=== PATIENT | female | born 1940 | race Caucasian/White ===

== ENCOUNTER 2024-04-20 15:02 | Emergency (ER) | payer MEDICARE ==
--- NOTE | 2024-04-20 15:35 | ED ---
Fall HPI - General Chief Complaint: Fall Stated Complaint: fall-hit head Time Seen by Provider: 04/20/24 15:26 Source: patient, family, RN notes reviewed Mode of arrival: ambulatory Limitations: no limitations - History of Present Illness Initial Comments: 83-year-old female presents emergency department chief complaint of a fall. She states she was going up her steps into the house from the garage when she missed the handle falling backwards striking her head. She did strike her head on a cooler she is on Eliquis patient placed in a c-collar. She complains of minimal buttocks pain states pain does travel up and down her back but has no exact neck pain. Patient denies any difficulty ambulating or loss conscious. No chest pain no shortness of breath - Related Data Allergies Allergy/AdvReac Type Severity Reaction Status Date / Time Penicillins Allergy Anaphylaxis Verified 04/20/24 15:12 adhesive tape AdvReac Rash/Hives Verified 04/20/24 15:12 Review of Systems ROS Statement: Those systems with pertinent positive or pertinent negative responses have been documented in the HPI. ROS Other: All systems not noted in ROS Statement are negative. Past Medical History Past Medical History: Atrial Fibrillation History of Any Multi-Drug Resistant Organisms: None Reported Past Surgical History: Adenoidectomy, Appendectomy, Ear Surgery, Hysterectomy Past Psychological History: No Psychological Hx Reported Smoking Status: Never smoker Past Alcohol Use History: Occasional Past Drug Use History: None Reported General Exam Limitations: no limitations General appearance: alert, in no apparent distress Head exam: Present: atraumatic, normocephalic. Absent: normal inspection (Scalp hematoma right parietal /occipital) Eye exam: Present: normal appearance, PERRL, EOMI. Absent: scleral icterus, conjunctival injection, periorbital swelling ENT exam: Present: normal exam, normal oropharynx, mucous membranes moist Neck exam: Present: normal inspection. Absent: tenderness, meningismus, full ROM (Patient in c-collar), lymphadenopathy Respiratory exam: Present: normal lung sounds bilaterally. Absent: respiratory distress, wheezes, rales, rhonchi, stridor Cardiovascular Exam: Present: regular rate, normal rhythm, normal heart sounds. Absent: systolic murmur, diastolic murmur, rubs, gallop, clicks GI/Abdominal exam: Present: soft, normal bowel sounds. Absent: distended, tenderness, guarding, rebound, rigid Back exam: Present: normal inspection, full ROM. Absent: tenderness, paraspinal tenderness, vertebral tenderness Neurological exam: Present: alert, oriented X3, CN II-XII intact, reflexes normal, other (GCS 15). Absent: motor sensory deficit Skin exam: Present: warm, dry, intact, normal color. Absent: rash Course Vital Signs 04/20/24 04/20/24 15:03 16:28 Temperature 97.7 F Pulse Rate 50 L 52 L Respiratory 16 Rate Blood Pressure 148/54 187/67 O2 Sat by Pulse 97 Oximetry Medical Decision Making - Medical Decision Making Was pt. sent in by a medical professional or institution (, [facility], [employer], urgent care, hospital, or skilled nursing...) When possible be specific @ -No Did you speak to anyone other than the patient for history (EMS, parent, family, police, friend...)? What history was obtained from this source @ -No Did you review nursing and triage notes (agree or disagree)? Why? @ -I reviewed and agree with nursing and triage notes Were old charts reviewed (outside hosp., previous admission, EMS record, old EKG, old radiological studies, urgent care reports/EKG's, skilled nursing records)? Report findings @ -No old charts were reviewed Differential Diagnosis (chest pain, altered mental status, abdominal pain women, abdominal pain men, vaginal bleeding, weakness, fever, dyspnea, syncope, headache, dizziness, GI bleed, back pain, seizure, CVA, palpatations, mental health, musculoskeletal)? @ -Fall, scalp contusion, intracranial hemorrhage, cervical fracture, pelvic fracture EKG interpreted by me (3pts min.). @ -None none X-rays interpreted by me (1pt min.). @ -Pelvis no acute fracture CT interpreted by me (1pt min.). @ -CT brain showing small right parietal subdural hematoma, cervical spine CT unremarkable U/S interpreted by me (1pt. min.). @ -None done What testing was considered but not performed or refused? (CT, X-rays, U/S, labs)? Why? @ -None What meds were considered but not given or refused? Why? @ -None Did you discuss the management of the patient with other professionals (professionals i.e. , [facility], [employer] REPAIRER, lab, RT, psych nurse, social work assistant, emergency room orderly, teacher, strike warfare/missile systems officer, bilingual patient support caseworker)? Give summary @ -Discussed case with Dr. Queen at [facility] for transferred for neurosurgery evaluation Was smoking cessation discussed for >3mins.? @ -No Was critical care preformed (if so, how long)? @ -No Were there social determinants of health that impacted care today? How? (Homelessness, low income, unemployed, alcoholism, drug addiction, transportation, low edu. Level, literacy, decrease access to med. care, senior living, rehab)? @ -No Was there de-escalation of care discussed even if they declined (Discuss DNR or withdrawal of care, Hospice)? DNR status @ -No What co-morbidities impacted this encounter? (DM, HTN, Smoking, COPD, CAD, Canc er, CVA, ARF, Chemo, Hep., AIDS, mental health diagnosis, sleep apnea, morbid obesity)? @ -None Was patient admitted / discharged? Hospital course, mention meds given and route, prescriptions, significant lab abnormalities, going to OR and other pertinent info. @ -[facility]terior [facility]. Patient presented after a fall mechanical fall CT showing small subdural hematoma. Patient is on Eliquis for atrial fibrillation. Patient was given Kcentra and TXA. Patient is logically intact she has no ot her obvious injuries at this time. Patient's blood pressure is elevated at this time. Patient will be placed on Cardene and will be closely monitored. Undiagnosed new problem with uncertain prognosis? @ -Yes Drug Therapy requiring intensive monitoring for toxicity (Heparin, Nitro, Insulin, Cardizem)? @ -No Were any procedures done? @ -No Diagnosis/symptom? @ -Subdermal hematoma, fall Acute, or Chronic, or Acute on Chronic? @ -Acute Uncomplicated (without systemic symptoms) or Complicated (systemic symptoms)? @ -Complicated Side effects of treatment? @ -No Exacerbation, Progression, or Severe Exacerbation? @ -No Poses a threat to life or bodily function? How? (Chest pain, USA, SC, pneumonia, PE, COPD, DKA, ARF, appy, cholecystitis, CVA, Diverticulitis, Homicidal, Suicidal, threat to staff... and all critical care pts) @ -Yes - Lab Data Result diagrams: 04/20/24 16:28 Lab Results 06/23/24 Range/Units 16:28 WBC 3.7 L (3.8-10.6) k/uL RBC 3.61 L (3.80-5.40) m/uL Hgb 11.9 (11.4-16.0) gm/dL Hct 37.3 (34.0-46.0) % MCV 103.2 H (80.0-100.0) fL MCH 33.0 (25.0-35.0) pg MCHC 31.9 (31.0-37.0) g/dL RDW 12.3 (11.5-15.5) % Plt Count 156 (150-450) k/uL MPV 7.8 Neutrophils % 52 % Lymphocytes % 37 % Monocytes % 5 % Eosinophils % 3 % Basophils % 1 % Neutrophils # 1.9 (1.3-7.7) k/uL Lymphocytes # 1.3 (1.0-4.8) k/uL Monocytes # 0.2 (0-1.0) k/uL Eosinophils # 0.1 (0-0.7) k/uL Basophils # 0.0 (0-0.2) k/uL Macrocytosis Slight Critical Care Time Critical Care Time: Yes Total Critical Care Time: 35 Disposition Clinical Impression: Fall, Subdural hematoma Disposition: OTHER INSTITUTION NOT DEFINED Condition: Critical Referrals: Lonny Aden DO [Primary Care Provider] - 1-2 days Time of Disposition: 16:15 - Out of Hospital Transfer - Req. Specs Out of Hospital Transfer - Requested Specifics: Other Emergency Center ([facility])
[2024-04-20] MEDS ORDERED: Kcentra PER PHARMACY 1 EACH MISC MISCELLANE PRN (16:09)
[2024-04-20] MEDS ORDERED: HUMAN PROTHROMBIN COMPLX 500 UNIT/16 ML VIAL IV ONE (16:09)
--- NOTE | 2024-04-20 16:09 | CT ---
EXAMINATION TYPE: CT brain yee vargas DATE OF EXAM: 04/20/2024 COMPARISON: None HISTORY: pt fell, hit head. neck pain. unable to remove pt's necklace through c collar. CT DLP: 1411.[address] of the brain was performed. The ventricles, basal cisterns and sulci overlying the cerebral convexities demonstrate enlargement. Bifrontal atrophy. Remote insult left basal ganglia. I cannot exclude a small right parietal subdural hematoma measuring 1 cm in AP dimension and 2.4 mm i n thickness axial image 38 of 73 and coronal image 36 of 73. No additional hemorrhage seen at this ti me. There is decreased attenuation about the periventricular white matter and deep white matter of both c erebral hemispheres, compatible with chronic small vessel ischemia. No mass effects are seen. If symptoms persist consider MRI. Osseous calvarium is intact. IMPRESSION: 1. Small right parietal subdural hematoma is difficult to exclude. CT Cervical Spine: Unenhanced CT of the cervical spine was performed with bone and soft tissue window settings submitted . Coronal and sagittal reconstruction is obtained. There is normal alignment and prevertebral soft tissues. No evidence for acute cervical fracture . Scattered degenerative disc disease and spondylosis. Biapical scarring. Evidence of remote granulomat ous disease and biapical scarring. Intracranially, spectroscopic data place a graduate nurse view from teleradiology has gone Michael Thapa she might have a small subdural on the right leg 1 cm in length 2.4 mm in thickness otherwise sagittal C much. Thanks. IMPRESSION: 1. No evidence for acute fracture or subluxation of the cervical spine.
--- NOTE | 2024-04-20 16:11 | XR ---
EXAMINATION TYPE: XR pelvis AP view DATE OF EXAM: 04/20/2024 CLINICAL HISTORY: pain TECHNIQUE: Single view the pelvis is submitted. FINDINGS: No evidence for fracture, dislocation or bony lesion. Joint spaces are well-preserved. S I joints appear symmetric. IMPRESSION: 1. No acute fracture or dislocation seen. ICD 10 NO FRACTURE, INITIAL EVALUATION
[2024-04-20 16:34] LABS: Basophils % (A) 1 %; Eosinophils # (A) 0.1 k/uL (0-0.7); Eosinophils % (A) 3 %; HCT 37.3 % (34.0-46.0); HGB 11.9 gm/dL (11.4-16.0); Lymphocytes # (A) 1.3 k/uL (1.0-4.8); Lymphocytes % (A) 37 %; MCHC 31.9 g/dL (31.0-37.0); MCV 103.2 fL (80.0-100.0); Macrocytosis Slight; Mean Platelet Volume 7.8; Monocytes # (A) 0.2 k/uL (0-1.0); Monocytes % (A) 5 %; Neutrophils # (A) 1.9 k/uL (1.3-7.7); Neutrophils % (A) 52 %; Platelet Count 156 k/uL (150-450); RBC 3.61 m/uL (3.80-5.40); RDW 12.3 % (11.5-15.5); WBC 3.7 k/uL (3.8-10.6)
[2024-04-20] MEDS: HUMAN PROTHROMBIN COMPLX IV STA (16:41)
[2024-04-20 16:42] LABS: Partial Thromboplastin Time 26.4 sec (22.0-30.0)
[2024-04-20 16:44] LABS: ALT 9 U/L (4-34); African American GFR (CKD) >90 (>60 ml/min/1.73 sqM); Anion Gap 7 mmol/L; Blood Urea Nitrogen 22 mg/dL (7-17); Calcium 7.2 mg/dL (8.4-10.2); Carbon Dioxide 17 mmol/L (22-30); Chloride 116 mmol/L (98-107); Glucose 79 mg/dL (74-99); Non-African American GFR(CKD) 85 (>60 ml/min/1.73 sqM); Sodium 140 mmol/L (137-145); Total Bilirubin 0.5 mg/dL (0.2-1.3)
[2024-04-20] MEDS: TRANEXAMIC 1,000 MG/100ML-NACL 1,000 MG in SALINE 1 100ML.BAG IV STA (16:49)
[2024-04-20] MEDS: niCARdipine 20 MG in SODIUM CHLORIDE 0.9% 192 ML IV SCH (16:54)
[2024-04-20 17:19] VITALS: BP 166/67; PULSE 51; RESP 21; TEMP 97.8
[2024-04-20 17:25] LABS: AST 29 U/L (14-36); Albumin 3.1 g/dL (3.5-5.0); Alkaline Phosphatase 52 U/L (38-126); Total Protein 5.1 g/dL (6.3-8.2)
== END 2024-04-20 17:15 | disposition other institution (70) ==
LOC: EC 15:02
DX: S06.5XAA Traumatic subdural hemorrhage with loss of consciousness status unknown, initial encounter (principal); Z88.0 Allergy status to penicillin; Z91.048 Other nonmedicinal substance allergy status; W10.9XXA Fall (on) (from) unspecified stairs and steps, initial encounter
CPT/HCPCS: 36415; 80053; 85025; 85610; 85730; 72170; 72125; 70450; 99291; 96365; 96368; J7168

== ENCOUNTER 2024-05-22 21:29 | Emergency (ER) | payer MEDICARE ==
[2024-05-22 21:57] VITALS: RESP 20
--- NOTE | 2024-05-22 22:09 | ED ---
URI HPI - General Chief Complaint: Upper Respiratory Infection Stated Complaint: + covid, fever Time Seen by Provider: 05/22/24 22:07 Source: patient, family, RN notes reviewed Mode of arrival: wheelchair Limitations: no limitations - History of Present Illness Initial Comments: 83-year-old female with history of atrial fibrillation presenting with cough x 1 day. States she tested positive for COVID at home tonight. She has been experiencing fever and feeling "winded" at home. States symptoms came on suddenly today. Denies history of COVID. Denies any other medical history besides atrial fibrillation. Denies difficulty breathing or difficulty tolerating orals. - Related Data Allergies Allergy/AdvReac Type Severity Reaction Status Date / Time Penicillins Allergy Anaphylaxis Verified 05/22/24 21:39 adhesive tape AdvReac Rash/Hives Verified 05/22/24 21:39 Review of Systems ROS Statement: Those systems with pertinent positive or pertinent negative responses have been documented in the HPI. ROS Other: All systems not noted in ROS Statement are negative. Past Medical History Past Medical History: Atrial Fibrillation History of Any Multi-Drug Resistant Organisms: None Reported Past Surgical History: Adenoidectomy, Appendectomy, Ear Surgery, Hysterectomy, Tonsillectomy Past Psychological History: No Psychological Hx Reported Smoking Status: Never smoker Past Alcohol Use History: Occasional Past Drug Use History: None Reported General Exam Limitations: no limitations General appearance: alert, in no apparent distress Eye exam: Present: normal appearance, PERRL, EOMI. Absent: scleral icterus, conjunctival injection, periorbital swelling ENT exam: Present: normal exam, normal oropharynx, mucous membranes moist Respiratory exam: Present: normal lung sounds bilaterally. Absent: respiratory distress, wheezes, rales, rhonchi, stridor Cardiovascular Exam: Present: regular rate, normal rhythm, normal heart sounds. Absent: systolic murmur, diastolic murmur, rubs, gallop, clicks Neurological exam: Present: alert, oriented X3 Psychiatric exam: Present: normal affect, normal mood Skin exam: Present: warm, dry, intact, normal color. Absent: rash Course Vital Signs 05/22/24 05/22/24 05/22/24 21:30 21:41 21:50 Temperature 98.7 F 102.9 F H Pulse Rate 90 Respiratory 18 20 Rate Blood Pressure 111/52 O2 Sat by Pulse 96 Oximetry Disposition Referrals: Lonny Aden DO [Primary Care Provider] - 1-2 days
[2024-05-22] MEDS: IBUPROFEN 600 MG TAB PO STA (22:11)
[2024-05-22 23:38] VITALS: TEMP 99.9
--- NOTE | 2024-05-23 01:32 | XR ---
EXAM: XR Chest, 2 Views CLINICAL HISTORY: ITS.REASON XR Reason: cough TECHNIQUE: Frontal and lateral views of the chest. COMPARISON: No relevant prior studies available. FINDINGS: Lungs: Unremarkable. No consolidation. Pleural space: Unremarkable. No pneumothorax. Heart: Unremarkable. No cardiomegaly. Mediastinum: Unremarkable. Normal mediastinal contour. Bones/joints: Unremarkable. No acute fracture. IMPRESSION: No consolidation.
[2024-05-23 01:52] VITALS: BP 132/74; PULSE 64
== END 2024-05-23 00:45 | disposition home or self-care (01) ==
LOC: EC 21:29
DX: U07.1 COVID-19 (principal)
CPT/HCPCS: 71046; 99283

== ENCOUNTER 2024-05-26 12:04 | Inpatient (IN) | payer MEDICARE ==
[2024-05-26 13:08] LABS: HCT 35.8 % (34.0-46.0); HGB 12.1 gm/dL (11.4-16.0); MCH 33.1 pg (25.0-35.0); MCHC 33.9 g/dL (31.0-37.0); Mean Platelet Volume 7.7; Platelet Count 202 k/uL (150-450); RBC 3.67 m/uL (3.80-5.40); RDW 12.3 % (11.5-15.5); WBC 6.7 k/uL (3.8-10.6)
[2024-05-26 13:14] LABS: INR 0.9 (<1.2); Partial Thromboplastin Time 27.8 sec (22.0-30.0); Prothrombin Time 10.3 sec (10.0-12.5)
[2024-05-26] MEDS: SODIUM CHLORIDE 0.9% 1,000 ML IV STA (13:14)
[2024-05-26] MEDS: PANTOPRAZOLE 40 MG/10 ML VIAL IVP STA (13:18)
[2024-05-26] MEDS: ONDANSETRON 4 MG/2 ML VIAL IVP STA (13:18)
[2024-05-26 13:25] LABS: ALT 10 U/L (4-34); AST 26 U/L (14-36); African American GFR (CKD) 56 (>60 ml/min/1.73 sqM); Albumin 4.1 g/dL (3.5-5.0); Alkaline Phosphatase 66 U/L (38-126); Anion Gap 12 mmol/L; Blood Urea Nitrogen 34 mg/dL (7-17); Calcium 9.2 mg/dL (8.4-10.2); Carbon Dioxide 17 mmol/L (22-30); Chloride 104 mmol/L (98-107); Glucose 118 mg/dL (74-99); Lipase 144 U/L (23-300); Non-African American GFR(CKD) 49 (>60 ml/min/1.73 sqM); Potassium 4.3 mmol/L (3.5-5.1); Sodium 133 mmol/L (137-145); Total Bilirubin 0.6 mg/dL (0.2-1.3); Total Protein 6.5 g/dL (6.3-8.2)
--- NOTE | 2024-05-26 13:29 | XR ---
EXAMINATION TYPE: XR chest 2V DATE OF EXAM: 05/26/2024 COMPARISON: 05/22/2024 HISTORY: Shortness of breath TECHNIQUE: Frontal and lateral views of the chest are obtained. FINDINGS: Scattered senescent parenchymal changes noted. Hyperinflation compatible with COPD. No evidence for infiltrate. No evidence for atelectasis. Heart size is stable. Mediastinal structures are stable and grossly unremarkable. No evidence for hilar prominence. Degenerative changes dorsal spine. IMPRESSION: 1. No evidence for acute pulmonary disease.
[2024-05-26 13:33] LABS: MCV 97.7 fL (80.0-100.0)
[2024-05-26 14:11] LABS: Band Neutrophils % 1 %; Nucleated Red Blood Cells 0 /100 WBC (0-0); RBC Morphology Normal
[2024-05-26 14:15] LABS: Lymphocytes # (M) 2.35 k/uL (1.0-4.8); Neutrophils % (M) 52 %; Total Cells Counted 102
[2024-05-26] MEDS ORDERED: NALOXONE 0.4 MG/ML 1 ML VIAL IV PRN (14:56)
[2024-05-26] MEDS ORDERED: ONDANSETRON 4 MG/2 ML VIAL IVP PRN (14:56)
--- NOTE | 2024-05-26 14:56 | ED ---
General Adult HPI - General Chief complaint: Weakness Stated complaint: Covid + Time Seen by Provider: 05/26/24 12:30 Source: patient, EMS, RN notes reviewed, old records reviewed Mode of arrival: EMS - History of Present Illness Initial comments: Patient is an 83-year-old female presents emergency department complaining of weakness. Patient was found to be COVID-19 positive a few days ago and was initiated on Paxlovid. Has had weakness, issues with moving around home which is abnormal for her, as well as decreased appetite and dehydration. Presents for further evaluation. She denies any abdominal pain, nausea, vomiting. States she has had some diarrhea. Denies any chest pain or shortness of breath. Presents for further evaluation. Past medical history includes atrial fibrillation. - Related Data Home Medications Medication Instructions Recorded Confirmed Acetaminophen Tab [Tylenol] 650 mg PO Q6H PRN 05/26/24 05/26/24 Apixaban [Eliquis] 2.5 mg PO BID 05/26/24 05/26/24 Diphenoxylate HCl/Atropine 1 tab PO TID PRN 05/26/24 05/26/24 [Lomotil 2.5-0.025 mg Tablet] Donepezil HCl [Aricept] 10 mg PO HS 05/26/24 05/26/24 Escitalopram Oxalate [Lexapro] 10 mg PO DAILY 05/26/24 05/26/24 Famotidine [Pepcid] 40 mg PO BID 05/26/24 05/26/24 Gabapentin 600 mg PO BID 05/26/24 05/26/24 Methenamine Hippurate [Hiprex] 1 gm PO BID 05/26/24 05/26/24 Metoprolol Tartrate [Lopressor] 25 mg PO BID 05/26/24 05/26/24 NIFEdipine XL [Procardia Xl] 30 mg PO BID 05/26/24 05/26/24 Nirmatrelvir/Ritonavir [Paxlovid 1 dose PO BID 05/26/24 05/26/24 150-100 mg Dose Pack] OLANZapine [ZyPREXA] 2.5 mg PO DAILY@1200 05/26/24 05/26/24 gemfibroziL [Lopid] 600 mg PO BID 05/26/24 05/26/24 lisinopriL [Zestril] 10 mg PO DAILY 05/26/24 05/26/24 Allergies Allergy/AdvReac Type Severity Reaction Status Date / Time adhesive tape Allergy Rash/Hives Verified 05/26/24 14:43 codeine Allergy Unknown Verified 05/26/24 14:43 Penicillins Allergy Anaphylaxis Verified 05/26/24 14:43 Review of Systems ROS Statement: Those systems with pertinent positive or pertinent negative responses have been documented in the HPI. Review of Systems: CONST: Denies fever EYES: Denies blurry vision ENT: Denies nasal congestion C/V: Denies Chest pain RESP: Denies shortness of breath GI: Denies abdominal pain : Denies dysuria SKIN: Denies rash. MSK: Denies joint pain. NEURO: Denies headache ROS Other: All systems not noted in ROS Statement are negative. Past Medical History Past Medical History: Atrial Fibrillation History of Any Multi-Drug Resistant Organisms: None Reported Past Surgical History: Adenoidectomy, Appendectomy, Ear Surgery, Hysterectomy, Tonsillectomy Past Psychological History: No Psychological Hx Reported Smoking Status: Never smoker Past Alcohol Use History: Occasional Past Drug Use History: None Reported General Exam - General Exam Comments Initial Comments: General: Appears in no acute distress. HEAD: Normal with no signs of head trauma. EYES: PERRLA, EOMI, conjunctiva normal, no discharge. ENT: Hearing grossly intact, normal oropharynx. Dry mucous membranes. RESPIRATORY: Clear breath sounds bilaterally. No wheezes, rales, or rhonchi. No significant hypoxia. C/V: Regular rate and rhythm. S1 and S2 auscultated, no edema, peripheral pulses 2+ and intact throughout ABD: Abd is soft, nontender, nondistended EXT: Normal range of motion, no obvious deformity SKIN: No rashes or lesions observed on exposed skin. NEURO: Alert and oriented x 4. No focal deficits. Course Vital Signs 05/26/24 12:06 Temperature 98.0 F Pulse Rate 60 Respiratory 16 Rate Blood Pressure 116/60 O2 Sat by Pulse 94 L Oximetry Medical Decision Making - Medical Decision Making Was pt. sent in by a medical professional or institution (, PA, TOBACCO SIEVE OPERATOR, urgent care, hospital, or detention...) When possible be specific @ -No Did you speak to anyone other than the patient for history (EMS, parent, family, police, friend...)? What history was obtained from this source @ -No Did you review nursing and triage notes (agree or disagree)? Why? @ -I reviewed and agree with nursing and triage notes Were old charts reviewed (outside hosp., previous admission, EMS record, old EKG, old radiological studies, urgent care reports/EKG's, detention records)? Report findings @ -Old charts reviewed including the recent COVID-19 positive test from 4 days ago on May 22. Differential Diagnosis (chest pain, altered mental status, abdominal pain women, abdominal pain men, vaginal bleeding, weakness, fever, dyspnea, syncope, headache, dizziness, GI bleed, back pain, seizure, CVA, palpatations, mental health, musculoskeletal)? @ -Differential Weakness: Hypoglycemia, shock, sepsis, hyponatremia, anemia, infection, SC, ETOH, adverse medicine reaction, overdose, stroke, this is not meant to be an all-inclusive list. EKG interpreted by me (3pts min.). @ -As above X-rays interpreted by me (1pt min.). @ -Chest x-ray reveals no obvious acute cardiopulmonary process. CT interpreted by me (1pt min.). @ -None done U/S interpreted by me (1pt. min.). @ -None done What testing was considered but not performed or refused? (CT, X-rays, U/S, labs)? Why? @ -None What meds were considered but not given or refused? Why? @ -None Did you discuss the management of the patient with other professionals (professionals i.e. , PA, TOBACCO SIEVE OPERATOR, lab, RT, psych nurse, social human services assistants, superintendent local, teacher, humane officer, housing case manager)? Give summary @ -I discussed with Dr. Leone of [facility] who accepted the admission. Was smoking cessation discussed for >3mins.? @ -No Was critical care preformed (if so, how long)? @ -No Were there social determinants of health that impacted care today? How? (Homelessness, low income, unemployed, alcoholism, drug addiction, transportation, low edu. Level, literacy, decrease access to med. care, senior care, rehab)? @ -No Was there de-escalation of care discussed even if they declined (Discuss DNR or withdrawal of care, Hospice)? DNR status @ -No What co-morbidities impacted this encounter? (DM, HTN, Smoking, COPD, CAD, Cancer, CVA, ARF, Chemo, Hep., AIDS, mental health diagnosis, sleep apnea, morbid obesity)? @ -COVID-19 infection Was patient admitted / discharged? Hospital course, mention meds given and route, prescriptions, significant lab abnormalities, going to OR and other pertinent info. @ -Based on patient's presentation and physical exam, presents emergency department complaining of weakness, debility in the setting of recently diagnosed COVID-19. Decreased oral intake. Concern for dehydration. We will obtain basic labs. Patient was in agreement this plan. Vital signs within acceptable limits. EKG shows no signs of acute ischemia. Patient's laboratory studies are within acceptable limits. Chest x-ray reveals no obvious acute cardiopulmonary process. I discussed results with patient as well as daughter. Patient will be admitted for weakness, dehydration. They were in agreement this plan. I spoke with the admitting provider, Dr. Leone of [facility] who accepted the admission. Undiagnosed new problem with uncertain prognosis? @ -No Drug Therapy requiring intensive monitoring for toxicity (Heparin, Nitro, Insulin, Cardizem)? @ -No Were any procedures done? @ -No Diagnosis/symptom? @ -Weakness, dehydration, COVID-19 infection Acute, or Chronic, or Acute on Chronic? @ -Acute Uncomplicated (without systemic symptoms) or Complicated (systemic symptoms)? @ -Complicated Side effects of treatment? @ -No Exacerbation, Progression, or Severe Exacerbation? @ -No Poses a threat to life or bodily function? How? (Chest pain, USA, SC, pneumonia, PE, COPD, DKA, ARF, appy, cholecystitis, CVA, Diverticulitis, Homicidal, Suicidal, threat to staff... and all critical care pts) @ -Yes - Lab Data Result diagrams: 05/26/24 12:55 05/26/24 12:55 Lab Results 05/26/24 05/26/24 05/26/24 Range/Units 12:55 12:55 12:55 WBC 6.7 (3.8-10.6) k/uL RBC 3.67 L (3.80-5.40) m/uL Hgb 12.1 (11.4-16.0) gm/dL Hct 35.8 (34.0-46.0) % MCV 97.7 D (80.0-100.0) fL MCH 33.1 (25.0-35.0) pg MCHC 33.9 (31.0-37.0) g/dL RDW 12.3 (11.5-15.5) % Plt Count 202 (150-450) k/uL MPV 7.7 Neutrophils % (Manual) 52 % Band Neuts % (Manual) 1 % Lymphocytes % (Manual) 35 % Monocytes % (Manual) 9 % Eosinophils % (Manual) 3 % Neutrophils # (Manual) 3.50 (1.3-7.7) k/uL Lymphocytes # (Manual) 2.35 (1.0-4.8) k/uL Monocytes # (Manual) 0.60 (0-1.0) k/uL Eosinophils # (Manual) 0.20 (0-0.7) k/uL Nucleated RBCs 0 (0-0) /100 WBC Manual Slide Review Performed RBC Morphology Normal PT 10.3 (10.0-12.5) sec INR 0.9 (<1.2) APTT 27.8 (22.0-30.0) sec Sodium 133 L (137-145) mmol/L Potassium 4.3 (3.5-5.1) mmol/L Chloride 104 (98-107) mmol/L Carbon Dioxide 17 L (22-30) mmol/L Anion Gap 12 mmol/L BUN 34 H (7-17) mg/dL Creatinine 1.05 H (0.52-1.04) mg/dL Est GFR (CKD-EPI)AfAm 56 (>60 ml/min/1.73 sqM) Est GFR (CKD-EPI)NonAf 49 (>60 ml/min/1.73 sqM) Glucose 118 H (74-99) mg/dL Plasma Lactic Acid Jack (0.7-2.0) mmol/L Calcium 9.2 (8.4-10.2) mg/dL Total Bilirubin 0.6 (0.2-1.3) mg/dL AST 26 (14-36) U/L ALT 10 (4-34) U/L Alkaline Phosphatase 66 (38-126) U/L Total Protein 6.5 (6.3-8.2) g/dL Albumin 4.1 (3.5-5.0) g/dL Lipase 144 (23-300) U/L 05/26/24 Range/Units 12:55 WBC (3.8-10.6) k/uL RBC (3.80-5.40) m/uL Hgb (11.4-16.0) gm/dL Hct (34.0-46.0) % MCV (80.0-100.0) fL MCH (25.0-35.0) pg MCHC (31.0-37.0) g/dL RDW (11.5-15.5) % Plt Count (150-450) k/uL MPV Neutrophils % (Manual) % Band Neuts % (Manual) % Lymphocytes % (Manual) % Monocytes % (Manual) % Eosinophils % (Manual) % Neutrophils # (Manual) (1.3-7.7) k/uL Lymphocytes # (Manual) (1.0-4.8) k/uL Monocytes # (Manual) (0-1.0) k/uL Eosinophils # (Manual) (0-0.7) k/uL Nucleated RBCs (0-0) /100 WBC Manual Slide Review RBC Morphology PT (10.0-12.5) sec INR (<1.2) APTT (22.0-30.0) sec Sodium (137-145) mmol/L Potassium (3.5-5.1) mmol/L Chloride (98-107) mmol/L Carbon Dioxide (22-30) mmol/L Anion Gap mmol/L BUN (7-17) mg/dL Creatinine (0.52-1.04) mg/dL Est GFR (CKD-EPI)AfAm (>60 ml/min/1.73 sqM) Est GFR (CKD-EPI)NonAf (>60 ml/min/1.73 sqM) Glucose (74-99) mg/dL Plasma Lactic Acid Jack 0.8 (0.7-2.0) mmol/L Calcium (8.4-10.2) mg/dL Total Bilirubin (0.2-1.3) mg/dL AST (14-36) U/L ALT (4-34) U/L Alkaline Phosphatase (38-126) U/L Total Protein (6.3-8.2) g/dL Albumin (3.5-5.0) g/dL Lipase (23-300) U/L - EKG Data -: EKG Interpreted by Me EKG Comments: 12-lead Electrocardiogram Interpretation Note EKG was reviewed and interpreted by myself. 12-lead ECG performed at 1249 is interpreted by me as revealing sinus bradycardia at a rate of 58 beats per minute. Lisman is normal. IN interval is 186 ms, QRS duration is 105 ms, QTc is 433 ms. There were no ST or T wave abnormalities to suggest myocardial ischemia or injury. R wave progression across the precordium was satisfactory. By my i nterpretation this EKG is non-diagnostic for acute ischemia. Disposition Clinical Impression: COVID-19, Weakness, Dehydration Disposition: ADMITTED IP TO THIS HOSP Condition: Stable Time of Disposition: 14:55
[2024-05-26] MEDS: ALBUTEROL HFA INHALER INHALATION STA (15:40)
[2024-05-26] MEDS: SODIUM CHLORIDE 0.9% 1,000 ML IV SCH (16:22)
[2024-05-26 22:55] LABS: Appearance,Urine Clear (Clear); Bilirubin,Urine Negative (Negative); Blood,Urine Negative (Negative); Color,Urine Colorless; Glucose,Urine (UA) Negative (Negative); Ketones,Urine Negative (Negative); Leukocyte Esterase,Urine Negative (Negative); Nitrite,Urine Negative (Negative); PH, Urine 5.5 (5.0-8.0); Protein,Urine Negative (Negative); Specific Gravity,Urine 1.005 (1.001-1.035); Urobilinogen,Urine <2.0 mg/dL (<2.0)
--- NOTE | 2024-05-26 23:26 | P.HPIM ---
History of Present Illness H&P Date: 05/26/24 Chief Complaint: Generalized weakness Patient is a 83-year-old female with a past medical history of atrial fibrillation on anticoagulation with Eliquis, hypertension, hyperlipidemia, dementia was brought to the hospital due to generalized weakness. Patient found to be COVID-19 positive few days ago and was started on Paxlovid as an outpatient. Patient has been having generalized weakness and unable to move around in the house which is not normal for her. She is also having decreased appetite and oral intake. Otherwise patient denies any complaints of chest pain. No complaints of shortness of breath. Patient is on room air. No complaints of nausea vomiting or abdominal pain. She had diarrhea initially which has been improving. Patient is afebrile on admission. Pulse ox 94% on room air.Patient is hard of hearing. Chest x-ray showed no evidence for acute pulmonary process. EKG showed sinus bradycardia with heart rate 58 Laboratory data showed WBC 6.7 hemoglobin 12.1 and platelets 202 Sodium 133 potassium 4.3 chloride 104 bicarb is 17 BUN 34 and creatinine 1.05 and blood sugar 118 Liver enzymes are not elevated. Lactic acid 0.8 albumin 4.1 and lipase 144 Urinalysis is negative for infection. Review of Systems Complete review of systems could not be obtained from the patient except as per HPI Past Medical History Past Medical History: Atrial Fibrillation History of Any Multi-Drug Resistant Organisms: None Reported Past Surgical History: Adenoidectomy, Appendectomy, Ear Surgery, Hysterectomy, Tonsillectomy Past Psychological History: No Psychological Hx Reported Smoking Status: Never smoker Past Alcohol Use History: Occasional Past Drug Use History: None Reported Medications and Allergies Home Medications Medication Instructions Recorded Confirmed Type Acetaminophen Tab [Tylenol] 650 mg PO Q6H PRN 05/26/24 05/26/24 History Apixaban [Eliquis] 2.5 mg PO BID 05/26/24 05/26/24 History Diphenoxylate HCl/Atropine 1 tab PO TID PRN 05/26/24 05/26/24 History [Lomotil 2.5-0.025 mg Tablet] Donepezil HCl [Aricept] 10 mg PO HS 05/26/24 05/26/24 History Escitalopram Oxalate [Lexapro] 10 mg PO DAILY 05/26/24 05/26/24 History Famotidine [Pepcid] 40 mg PO BID 05/26/24 05/26/24 History Gabapentin 600 mg PO BID 05/26/24 05/26/24 History Methenamine Hippurate [Hiprex] 1 gm PO BID 05/26/24 05/26/24 History Metoprolol Tartrate [Lopressor] 25 mg PO BID 05/26/24 05/26/24 History NIFEdipine XL [Procardia Xl] 30 mg PO BID 05/26/24 05/26/24 History Nirmatrelvir/Ritonavir [Paxlovid 1 dose PO BID 05/26/24 05/26/24 History 150-100 mg Dose Pack] OLANZapine [ZyPREXA] 2.5 mg PO DAILY@1200 05/26/24 05/26/24 History gemfibroziL [Lopid] 600 mg PO BID 05/26/24 05/26/24 History lisinopriL [Zestril] 10 mg PO DAILY 05/26/24 05/26/24 History Allergies Allergy/AdvReac Type Severity Reaction Status Date / Time adhesive tape Allergy Rash/Hives Verified 05/26/24 14:43 codeine Allergy Unknown Verified 05/26/24 14:43 Penicillins Allergy Anaphylaxis Verified 05/26/24 14:43 Physical Exam Vitals: Vital Signs Temp Pulse Resp BP Pulse Ox 05/26/24 19:33 85 18 108/44 98 05/26/24 16:13 60 18 105/50 98 05/26/24 12:10 16 05/26/24 12:06 98.0 F 60 16 116/60 94 L Intake and Output 05/26/24 05/26/24 05/26/24 06:59 14:59 22:59 Other: Weight 63.957 kg PHYSICAL EXAMINATION: Patient is lying in the bed, no acute distress, awake alert and oriented but hard of hearing. HEENT: Normocephalic. Neck is supple. Pupils reactive. Nostrils clear. Oral cavity is moist. Neck reveals no JVD, carotid bruits, or thyromegaly. CHEST EXAMINATION: Trachea is central. Symmetrical expansion. Lung [place] clear to auscultation and percussion. CARDIAC: Normal S1, S2 with no gallops. No murmurs ABDOMEN: Soft. Bowel sounds normal. No organomegaly. No abdominal bruits. Extremities: reveal no edema. No clubbing or cyanosis Neurologically awake, alert, oriented x 1-2. Able to move all extremities.. No focal deficits noted Skin: No rash or skin lesions. Psychiatric: Coperative. Could not be specific completely. Musculoskeletal: No joint swelling or deformity. Normal range of motion. Results CBC & Chem 7: 05/26/24 12:55 05/26/24 12:55 Labs: Abnormal Lab Results - Last 24 Hours (Table) 05/26/24 05/26/24 Range/Units 12:55 12:55 RBC 3.67 L (3.80-5.40) m/uL Sodium 133 L (137-145) mmol/L Carbon Dioxide 17 L (22-30) mmol/L BUN 34 H (7-17) mg/dL Creatinine 1.05 H (0.52-1.04) mg/dL Glucose 118 H (74-99) mg/dL Thrombosis Risk Factor Assmnt - DVT/VTE Prophylaxis DVT/VTE Prophylaxis: Pharmacologic Prophylaxis ordered Assessment and Plan Assessment: Acute COVID-19 infection. Patient was started on Paxlovid as an outpatient. Patient could not confirm vaccination status. Generalized weakness, decreased oral intake and appetite. Acute kidney injury likely prerenal. Creatinine 1.05 and BUN 34 Hypovolemic hyponatremia Paroxysmal atrial fibrillation on anticoagulation with Eliquis Hypertension Hyperlipidemia Dementia DVT prophylaxis patient is already on anticoagulation with Eliquis GI prophylaxis with PPI Plan: Patient will be continued on IV hydration with normal saline. Continue with Paxlovid regimen for the remaining days. Blood pressure medications on hold due to marginal blood pressure. Continue with metoprolol and Eliquis. Encourage oral intake. PT OT consult and follow-up closely. Time with Patient: Greater than 30
[2024-05-27] MEDS: guaiFENesin-DM 100-10MG/5ML 10 ML CUP PO PRN (01:16)
[2024-05-27] MEDS: PANTOPRAZOLE 40 MG/10 ML VIAL IV SCH (08:37)
[2024-05-27] MEDS: METOPROLOL TARTRATE 25 MG TAB PO SCH (08:38)
[2024-05-27] MEDS: NIRMATRELVIR PO SCH (08:38)
[2024-05-27] MEDS: RITONAVIR PO SCH (08:38)
[2024-05-27] MEDS: APIXABAN 2.5 MG TABLET PO SCH (08:38)
[2024-05-27] MEDS: ZINC SULFATE 220 MG CAP PO SCH (08:38)
[2024-05-27] MEDS: CHOLECALCIFEROL 25 MCG (1000 IU) TABLET PO SCH (08:38)
[2024-05-27] MEDS: [UNRECOGNIZED DRUG - OTHER] PO SCH (08:38)
[2024-05-27 09:04] LABS: HCT 33.2 % (37.2-46.3); HGB 10.8 g/dL (12.0-15.0); MCH 32.6 pg (27.0-32.0); MCHC 32.5 g/dL (32.0-37.0); MCV 100.3 FL (80.0-97.0); Mean Platelet Volume 10.8 FL (9.5-12.2); NRBC Per 100 WBC 0 X 10*3/uL (0.00-0.01); Platelet Count 187 X 10*3/uL (140-440); RBC 3.31 X 10*6/uL (4.10-5.20); RDW 12.5 % (11.5-14.5); WBC 7.23 X 10*3/uL (4.50-10.00)
[2024-05-27 09:12] LABS: ALT 8 U/L (8-44); AST 18 U/L (13-35); Alkaline Phosphatase 69 U/L (41-126); BUN/Creat Ratio 23.09 Ratio (12.00-20.00); Blood Urea Nitrogen 25.4 mg/dL (9.0-27.0); Calcium 8.6 mg/dL (8.7-10.3); Carbon Dioxide 17.8 mmol/L (21.6-31.8); Chloride 106 mmol/L (96-109); Glucose 133 mg/dL (70-110); Sodium 138 mmol/L (135-145); Total Bilirubin 0.2 mg/dL (0.3-1.2)
[2024-05-27 10:03] LABS: Basophils # (A) 0.05 X 10*3/uL (0.00-0.10); Basophils % (A) 0.7 %; Eosinophils # (A) 0.12 X 10*3/uL (0.04-0.35); Eosinophils % (A) 1.7 %; Lymphocytes # (A) 3.16 X 10*3/uL (0.90-5.00); Lymphocytes % (A) 43.7 %; Monocytes % (A) 4.1 %; Neutrophils # (A) 3.57 X 10*3/uL (1.80-7.70); Neutrophils % (A) 49.4 %; RBC Morphology Normal (Normal)
[2024-05-27] MEDS: DIPHENOX-ATROP 2.5-0.025 MG 1 EACH TAB PO SCH ×2 (12:47→22:03)
[2024-05-27 13:28] LABS: C Reactive Protein 1.1 mg/dL (0.00-0.80)
[2024-05-27] MEDS ORDERED: BENZONATATE 100 MG CAP PO PRN (15:14)
[2024-05-27] MEDS: ALBUTEROL HFA INHALER INHALATION SCH (16:10)
--- NOTE | 2024-05-27 16:29 | P.PN ---
Subjective Progress Note Date: 05/27/24 Patient is a 83-year-old female with a past medical history of atrial fibrillation on anticoagulation with Eliquis, hypertension, hyperlipidemia, dementia was brought to the hospital due to generalized weakness. Patient found to be COVID-19 positive few days ago and was started on Paxlovid as an outpat ient. Patient has been having generalized weakness and unable to move around in the house which is not normal for her. She is also having decreased appetite and oral intake. Otherwise patient denies any complaints of chest pain. No complaints of shortness of breath. Patient is on room air. No complaints of nausea vomiting or abdominal pain. She had diarrhea initially which has been improving. Patient is afebrile on admission. Pulse ox 94% on room air.Patient is hard of hearing. Chest x-ray showed no evidence for acute pulmonary process. EKG showed sinus bradycardia with heart rate 58 Laboratory data showed WBC 6.7 hemoglobin 12.1 and platelets 202 Sodium 133 potassium 4.3 chloride 104 bicarb is 17 BUN 34 and creatinine 1.05 and blood sugar 118 Liver enzymes are not elevated. Lactic acid 0.8 albumin 4.1 and lipase 144 Urinalysis is negative for infection. 05/27/2024 Patient is seen in follow-up today with daughter at the bedside who reportedly lives with her. Patient with significant weakness continues to await PT/OT therapy evaluation. Patient also with continued persistent cough although is maintaining oxygen saturations above 90% on room air. Patient to continue on vitamin and zinc supplements and also completing Paxlovid. Patient is reporting continued diarrhea and daughter reports this is daily will add antidiarrheals and also continue with supportive care. Encouraged to increase activity as tolerated and sitting up out of the bed more often. Patient is afebrile at this time with no reports of chest pain or palpitations. Patient reports the cough is causing chest wall discomfort but is not reporting heart pain. Review of systems: Constitutional: reports of fatigue, no fever, or chills Cardiovascular: No reports of chest pain or palpitations, reports of chest wall pain from the cough Respiratory: No reports of shortness of breath reports continuous dry cough and hacking with no phlegm production GI: No reports of nausea, vomiting, reports multiple episodes of diarrhea : No reports of dysuria or retention Neurovascular: reports of generalized weakness All medications have been reviewed Active Medications Acetaminophen (Acetaminophen Tab 325 Mg Tab) 650 mg PO Q6H PRN PRN Reason: Pain or Fever > 100.5 Albuterol Sulfate (Albuterol Nebulized 2.5 Mg/3 Ml) 2.5 mg INHALATION RT-QID [facility] Albuterol Sulfate (Albuterol Hfa Inhaler) 2 puff INHALATION RT-QID [facility] Apixaban (Apixaban 2.5 Mg Tablet) 2.5 mg PO BID [facility]; Protocol Last Admin: 05/27/24 08:38 Dose: 2.5 mg Ascorbic Acid (Ascorbic Acid 500 Mg Tab) 500 mg PO DAILY [facility] Benzonatate (Benzonatate 100 Mg Cap) 100 mg PO TID PRN PRN Reason: Cough Cholecalciferol (Cholecalciferol 25 Mcg (1000 Iu) Tablet) 25 mcg PO DAILY [facility] Last Admin: 05/27/24 08:38 Dose: 25 mcg Diphenoxylate HCl/Atropine (Diphenox-Atrop 2.5-0.025 Mg 1 Each Tab) 1 each PO TID [facility] Last Admin: 05/27/24 12:47 Dose: 1 each Guaifenesin (Guaifenesin Syrup 100mg/5ml 200 Mg/10 Ml Cup) 200 mg PO Q6HR PRN PRN Reason: Cough Guaifenesin/Dextromethorphan (Guaifenesin-Dm 100-10mg/5ml 10 Ml Cup) 10 ml PO Q6HR PRN PRN Reason: Cough Last Admin: 05/27/24 01:16 Dose: 10 ml Sodium Chloride (Saline 0.9%) 1,000 mls @ 75 mls/hr IV .[id number] [facility] Last Admin: 05/27/24 05:35 Dose: Not Given Metoprolol Tartrate (Metoprolol Tartrate 25 Mg Tab) 25 mg PO BID [facility] Last Admin: 05/27/24 08:38 Dose: 25 mg Naloxone HCl (Naloxone 0.4 Mg/Ml 1 Ml Vial) 0.2 mg IV Q2M PRN PRN Reason: Opioid Reversal Non-Formulary Medication (Nirmatrelvir/Ritonavir [Paxlovid 150-100 Mg Dose Pack]) 1 dose PO BID [facility] Last Admin: 05/27/24 08:38 Dose: Not Given Ondansetron HCl (Ondansetron 4 Mg/2 Ml Vial) 4 mg IVP Q6H PRN PRN Reason: Nausea And Vomiting Pantoprazole Sodium (Pantoprazole 40 Mg Tablet) 40 mg PO -BRKFST [facility] Zinc Sulfate (Zinc Sulfate 220 Mg Cap) 220 mg PO DAILY [facility] Last Admin: 05/27/24 08:38 Dose: 220 mg PHYSICAL EXAMINATION: Patient is lying in the bed, coughing and hacking, awake alert and oriented, but hard of hearing. Elderly appearing, well-developed, ill-appearing HEENT: Normocephalic. Neck is supple. Pupils reactive. Nostrils clear. Oral cavity is moist. Neck reveals no JVD, carotid bruits, or thyromegaly. CHEST EXAMINATION: Trachea is central. Symmetrical expansion. Lung beckford clear to auscultation and percussion. Bronchospastic with coarse rhonchi noted at the bases CARDIAC: Normal S1, S2 with no gallops. No murmurs ABDOMEN: Soft. Thin bowel sounds normal. No organomegaly. No abdominal bruits. Extremities: reveal no edema. No clubbing or cyanosis Neurologically awake, alert, oriented x 2. Able to move all extremities.. No focal deficits noted Skin: No rash or skin lesions. Psychiatric: Coperative. Could not be specific completely. Musculoskeletal: No joint swelling or deformity. Normal range of motion. Assessment: Acute COVID-19 infection. Patient was started on Paxlovid as an outpatient. Patient could not confirm vaccination status. Generalized weakness, decreased oral intake and appetite. Acute kidney injury likely prerenal. Creatinine 1.05 and BUN 34 Hypovolemic hyponatremia Paroxysmal atrial fibrillation on anticoagulation with Eliquis Hypertension Hyperlipidemia Dementia DVT prophylaxis patient is already on anticoagulation with Eliquis GI prophylaxis with PPI Plan: Patient will be continued on IV hydration with normal saline. Continue with Paxlovid regimen for the remaining days. Blood pressure medications on hold due to marginal blood pressure. Continue with metoprolol and Eliquis. Encourage oral intake. PT OT consulted and pending at this time as patient has significant weakness. Patient was independent living at home with her daughter prior to this Continue supportive care with zinc, vitamin C and D supplements Encouraged to increase activity as tolerated and encouraged oral intake Continue cough medicine as needed as patient is continuing to have significant cough. Maintaining oxygen saturations above 90% on room air and denies shortness of breath Due to multiple complex medical issues, overall prognosis is guarded The impression and plan of care has been dictated by Latasha Lopez, Nurse Practitioner as directed. Dr. Sulema MD I have performed a history and examination and MDM of this patient, discussed the same with the dictator, and agree with the dictator's assessment and plan as written ,documented as a scribe. Based on total visit time, I have performed more than 50% of the visit. Objective - Vital Signs Vital signs: Vital Signs Temp 99.0 F 05/27/24 08:02 Pulse 83 05/27/24 08:02 Resp 18 05/27/24 09:09 BP 114/93 05/27/24 08:02 Pulse Ox 96 05/27/24 08:02 FiO2 Intake & Output 05/26/24 05/27/24 05/27/24 18:59 06:59 18:59 Weight 63.957 kg - Labs CBC & Chem 7: 05/27/24 06:14 05/27/24 06:14 Labs: Abnormal Lab Results - Last 24 Hours (Table) 05/26/24 05/26/24 05/27/24 Range/Units 12:55 12:55 06:14 RBC 3.67 L 3.31 L (3.80-5.40) m/uL Hgb 10.8 L (12.0-15.0) g/dL Hct 33.2 L (37.2-46.3) % MCV 100.3 H (80.0-97.0) FL MCH 32.6 H (27.0-32.0) pg Sodium 133 L (137-145) mmol/L Carbon Dioxide 17 L (22-30) mmol/L Anion Gap (4.00-12.00) mmol/L BUN 34 H (7-17) mg/dL Creatinine 1.05 H (0.52-1.04) mg/dL Est GFR (CKD-EPI) (>=60) BUN/Creatinine Ratio (12.00-20.00) Ratio Glucose 118 H (74-99) mg/dL Calcium (8.7-10.3) mg/dL Total Bilirubin (0.3-1.2) mg/dL Total Protein (6.2-8.2) g/dL 05/27/24 Range/Units 06:14 RBC (3.80-5.40) m/uL Hgb (12.0-15.0) g/dL Hct (37.2-46.3) % MCV (80.0-97.0) FL MCH (27.0-32.0) pg Sodium (137-145) mmol/L Carbon Dioxide 17.8 L (22-30) mmol/L Anion Gap 14.20 H (4.00-12.00) mmol/L BUN (7-17) mg/dL Creatinine (0.52-1.04) mg/dL Est GFR (CKD-EPI) 49 L (>=60) BUN/Creatinine Ratio 23.09 H (12.00-20.00) Ratio Glucose 133 H (74-99) mg/dL Calcium 8.6 L (8.7-10.3) mg/dL Total Bilirubin 0.2 L (0.3-1.2) mg/dL Total Protein 6.0 L (6.2-8.2) g/dL
[2024-05-27] MEDS: ASCORBIC ACID 500 MG TAB PO SCH (17:59)
[2024-05-27] MEDS: ALBUTEROL NEBULIZED 2.5 MG/3 ML INHALATION SCH (19:11)
[2024-05-28] MEDS: PANTOPRAZOLE 40 MG TABLET PO SCH (06:39)
[2024-05-28 10:37] LABS: HCT 30.8 % (37.2-46.3); HGB 10.1 g/dL (12.0-15.0); MCHC 32.8 g/dL (32.0-37.0); MCV 100.7 FL (80.0-97.0); Mean Platelet Volume 10.4 FL (9.5-12.2); NRBC Per 100 WBC 0 X 10*3/uL (0.00-0.01); Platelet Count 152 X 10*3/uL (140-440); RBC 3.06 X 10*6/uL (4.10-5.20); RDW 12.2 % (11.5-14.5); WBC 4.83 X 10*3/uL (4.50-10.00)
[2024-05-28] MEDS: [UNRECOGNIZED DRUG - OTHER] PO SCH (10:55)
[2024-05-28] MEDS: RITONAVIR PO SCH (10:55)
[2024-05-28] MEDS: NIRMATRELVIR PO SCH (10:55)
[2024-05-28 10:58] LABS: BUN/Creat Ratio 19.38 Ratio (12.00-20.00); Blood Urea Nitrogen 15.5 mg/dL (9.0-27.0); Calcium 8.4 mg/dL (8.7-10.3); Carbon Dioxide 19.1 mmol/L (21.6-31.8); Chloride 107 mmol/L (96-109); Glucose 112 mg/dL (70-110); Magnesium 2.2 mg/dL (1.5-2.4); Potassium 4.1 mmol/L (3.5-5.5); Sodium 137 mmol/L (135-145)
[2024-05-28 11:24] LABS: Basophils # (A) 0.02 X 10*3/uL (0.00-0.10); Basophils % (A) 0.4 %; Eosinophils # (A) 0.05 X 10*3/uL (0.04-0.35); Lymphocytes # (A) 2.44 X 10*3/uL (0.90-5.00); Lymphocytes % (A) 50.5 %; Monocytes # (A) 0.23 X 10*3/uL (0.20-1.00); Monocytes % (A) 4.8 %; Neutrophils # (A) 2.07 X 10*3/uL (1.80-7.70); Neutrophils % (A) 42.9 %
[2024-05-28] MEDS: guaiFENesin SYRUP 100MG/5ML 200 MG/10 ML CUP PO PRN (16:41)
[2024-05-28] MEDS: ALPRAZolam 0.25 MG TAB PO STA (16:54)
[2024-05-28] MEDS: QUEtiapine 25 MG TAB PO SCH (20:56)
--- NOTE | 2024-05-29 06:31 | P.PN ---
Subjective Progress Note Date: 05/28/24 Patient is a 83-year-old female with a past medical history of atrial fibrillation on anticoagulation with Eliquis, hypertension, hyperlipidemia, dementia was brought to the hospital due to generalized weakness. Patient found to be COVID-19 positive few days ago and was started on Paxlovid as an outpat ient. Patient has been having generalized weakness and unable to move around in the house which is not normal for her. She is also having decreased appetite and oral intake. Otherwise patient denies any complaints of chest pain. No complaints of shortness of breath. Patient is on room air. No complaints of nausea vomiting or abdominal pain. She had diarrhea initially which has been improving. Patient is afebrile on admission. Pulse ox 94% on room air.Patient is hard of hearing. Chest x-ray showed no evidence for acute pulmonary process. EKG showed sinus bradycardia with heart rate 58 Laboratory data showed WBC 6.7 hemoglobin 12.1 and platelets 202 Sodium 133 potassium 4.3 chloride 104 bicarb is 17 BUN 34 and creatinine 1.05 and blood sugar 118 Liver enzymes are not elevated. Lactic acid 0.8 albumin 4.1 and lipase 144 Urinalysis is negative for infection. 05/27/2024 Patient is seen in follow-up today with daughter at the bedside who reportedly lives with her. Patient with significant weakness continues to await PT/OT therapy evaluation. Patient also with continued persistent cough although is maintaining oxygen saturations above 90% on room air. Patient to continue on vitamin and zinc supplements and also completing Paxlovid. Patient is reporting continued diarrhea and daughter reports this is daily will add antidiarrheals and also continue with supportive care. Encouraged to increase activity as tolerated and sitting up out of the bed more often. Patient is afebrile at this time with no reports of chest pain or palpitations. Patient reports the cough is causing chest wall discomfort but is not reporting heart pain. 05/28/2024 Patient is seen in follow-up this morning with daughter at the bedside and patient appears fatigued and patient is also having some acute confusion. Concern for hospital-acquired delirium and will add Seroquel. Awaiting for PT/OT therapy to evaluate. Case management consulted as patient may require ecf for continued strength and mobility. Patient continues with occasional cough and remains on room air and denies chest pain or shortness of breath. Patient is afebrile. Review of systems: Constitutional: reports of fatigue, no fever, or chills Cardiovascular: No reports of chest pain or palpitations, reports of chest wall pain from the cough Respiratory: No reports of shortness of breath reports continuous dry cough and hacking with no phlegm production, slight improvement GI: No reports of nausea, vomiting, reports multiple episodes of diarrhea although improved : No reports of dysuria or retention Neurovascular: reports of generalized weakness All medications have been reviewed PHYSICAL EXAMINATION: Patient is lying in the bed, coughing and hacking, awake alert and orientedx1-2, but hard of hearing. Elderly appearing, well-developed, ill-appearing HEENT: Normocephalic. Neck is supple. Pupils reactive. Nostrils clear. Oral cavity is moist. Neck reveals no JVD, carotid bruits, or thyromegaly. CHEST EXAMINATION: Trachea is central. Symmetrical expansion. Lung be[place] clear to auscultation and percussion. Bronchospastic with coarse rhonchi noted at the bases CARDIAC: Normal S1, S2 with no gallops. No murmurs ABDOMEN: Soft. Thin bowel sounds normal. No organomegaly. No abdominal bruits. Extremities: reveal no edema. No clubbing or cyanosis Neurologically awake, alert, oriented x 2. Able to move all extremities.. No focal deficits noted Skin: No rash or skin lesions. Psychiatric: Cooperative. Musculoskeletal: No joint swelling or deformity. Normal range of motion. Assessment: Acute COVID-19 infection. Patient was started on Paxlovid as an outpatient. Patient could not confirm vaccination status. Generalized weakness, decreased oral intake and appetite. Acute kidney injury likely prerenal. Creatinine 1.05 and BUN 34 Hypovolemic hyponatremia secondary to diarrhea and poor oral intake Paroxysmal atrial fibrillation on anticoagulation with Eliquis Hypertension Hyperlipidemia Dementia DVT prophylaxis patient is already on anticoagulation with Eliquis GI prophylaxis with PPI Full code Plan: Patient will be continued on IV hydration with normal saline. Continue with Paxlovid regimen for the remaining days. Blood pressure medications on hold due to marginal blood pressure. Continue with metoprolol and Eliquis. Encourage oral intake. PT OT consulted and pending at this time as patient has significant weakness. Patient was independent living at home with her daughter prior to this. May need possible ecf. Patient and family are agreeable Continue supportive care with zinc, vitamin C and D supplements Encouraged to increase activity as tolerated and encouraged oral intake Continue cough medicine as needed as patient is continuing to have significant cough. Maintaining oxygen saturations above 90% on room air and denies shortness of breath Due to multiple complex medical issues, overall prognosis is guarded The impression and plan of care has been dictated by Latasha Lopez, Nurse Practitioner as directed. Dr. Sulema MD I have performed a history and examination and MDM of this patient, discussed the same with the dictator, and agree with the dictator's assessment and plan as written ,documented as a scribe. Based on total visit time, I have performed more than 50% of the visit. Objective - Vital Signs Vital signs: Vital Signs Temp 98.3 F 05/29/24 01:53 Pulse 79 05/29/24 01:53 Resp 18 05/29/24 01:53 BP 122/65 05/29/24 01:53 Pulse Ox 97 05/29/24 01:53 FiO2 Intake & Output 05/28/24 05/28/24 05/29/24 06:59 18:59 06:59 Output Total 500 Balance -500 Weight 63.957 kg Output: Urine 500 Other: Voiding Method Bedside Commode Bedside Commode # Voids 2 - Labs CBC & Chem 7: 05/28/24 06:34 05/28/24 06:34 Labs: Abnormal Lab Results - Last 24 Hours (Table) 05/28/24 05/28/24 Range/Units 06:34 06:34 RBC 3.06 L (4.10-5.20) X 10*6/uL Hgb 10.1 L (12.0-15.0) g/dL Hct 30.8 L (37.2-46.3) % MCV 100.7 H (80.0-97.0) FL MCH 33.0 H (27.0-32.0) pg Carbon Dioxide 19.1 L (21.6-31.8) mmol/L Glucose 112 H (70-110) mg/dL Calcium 8.4 L (8.7-10.3) mg/dL
[2024-05-29] MEDS: ONDANSETRON 4 MG/2 ML VIAL IVP PRN (14:08)
[2024-05-29] MEDS ORDERED: LOPERAMIDE 2 MG CAP PO PRN (14:12)
[2024-05-30] MEDS: ACETAMINOPHEN TAB 325 MG TAB PO PRN (04:45)
--- NOTE | 2024-05-30 05:52 | P.PN ---
Subjective Progress Note Date: 05/29/24 Patient is a 83-year-old female with a past medical history of atrial fibrillation on anticoagulation with Eliquis, hypertension, hyperlipidemia, dementia was brought to the hospital due to generalized weakness. Patient found to be COVID-19 positive few days ago and was started on Paxlovid as an outpat ient. Patient has been having generalized weakness and unable to move around in the house which is not normal for her. She is also having decreased appetite and oral intake. Otherwise patient denies any complaints of chest pain. No complaints of shortness of breath. Patient is on room air. No complaints of nausea vomiting or abdominal pain. She had diarrhea initially which has been improving. Patient is afebrile on admission. Pulse ox 94% on room air.Patient is hard of hearing. Chest x-ray showed no evidence for acute pulmonary process. EKG showed sinus bradycardia with heart rate 58 Laboratory data showed WBC 6.7 hemoglobin 12.1 and platelets 202 Sodium 133 potassium 4.3 chloride 104 bicarb is 17 BUN 34 and creatinine 1.05 and blood sugar 118 Liver enzymes are not elevated. Lactic acid 0.8 albumin 4.1 and lipase 144 Urinalysis is negative for infection. 05/27/2024 Patient is seen in follow-up today with daughter at the bedside who reportedly lives with her. Patient with significant weakness continues to await PT/OT therapy evaluation. Patient also with continued persistent cough although is maintaining oxygen saturations above 90% on room air. Patient to continue on vitamin and zinc supplements and also completing Paxlovid. Patient is reporting continued diarrhea and daughter reports this is daily will add antidiarrheals and also continue with supportive care. Encouraged to increase activity as tolerated and sitting up out of the bed more often. Patient is afebrile at this time with no reports of chest pain or palpitations. Patient reports the cough is causing chest wall discomfort but is not reporting heart pain. 05/28/2024 Patient is seen in follow-up this morning with daughter at the bedside and patient appears fatigued and patient is also having some acute confusion. Concern for hospital-acquired delirium and will add Seroquel. Awaiting for PT/OT therapy to evaluate. Case management consulted as patient may require ecf for continued strength and mobility. Patient continues with occasional cough and remains on room air and denies chest pain or shortness of breath. Patient is afebrile. 05/29/2024 Patient is seen in follow-up today continues to feel exhausted reports she is fatigued. Not much of an appetite and family at the bedside has been encouraging meals and will add some Magic cups and encourage the patient to continue with small frequent meals. Encouraged to increase activity as tolerated and sitting up out of the bed more frequently. Continue to reorient during the day and encouraged the family to sit with the patient is much as possible for reorientation. Patient remains slightly confused and will continue Seroquel. Case management following working on discharge planning to [facility] this patient was evaluated by physical therapy recommending rehab. Patient is afebrile and reports her cough is slightly improved. Review of systems: Constitutional: reports of fatigue, no fever, or chills Cardiovascular: No reports of chest pain or palpitations, reports of chest wall pain from the cough Respiratory: No reports of shortness of breath reports continuous dry cough and hacking with no phlegm production, slight improvement GI: No reports of nausea, vomiting, reports multiple episodes of diarrhea although improved, not much of an appetite : No reports of dysuria or retention Neurovascular: reports of generalized weakness All medications have been reviewed PHYSICAL EXAMINATION: Patient is lying in the bed, awake alert and orientedx1-2, but hard of hearing. Slightly confused, elderly appearing, well-developed, ill-appearing HEENT: Normocephalic. Neck is supple. Pupils reactive. Nostrils clear. Oral cav ity is moist. Neck reveals no JVD, carotid bruits, or thyromegaly. CHEST EXAMINATION: Trachea is central. Symmetrical expansion. Lung be[place] clear to auscultation and percussion. Bronchospastic with coarse rhonchi noted at the bases CARDIAC: Normal S1, S2 with no gallops. No murmurs ABDOMEN: Soft. Thin bowel sounds normal. No organomegaly. No abdominal bruits. Extremities: reveal no edema. No clubbing or cyanosis Neurologically awake, alert, oriented x 2. Able to move all extremities.. Diffusely weak. Skin: No rash or skin lesions. Psychiatric: Cooperative. Musculoskeletal: No joint swelling or deformity. Normal range of motion. Assessment: Acute COVID-19 infection. Patient was started on Paxlovid as an outpatient. Patient could not confirm vaccination status. Generalized weakness, decreased oral intake and appetite. Confusion, multifactorial secondary to dementia as well as some hospital- acquired delirium Acute kidney injury likely prerenal. Improving Hypovolemic hyponatremia secondary to diarrhea and poor oral intake Paroxysmal atrial fibrillation on anticoagulation with Eliquis Hypertension Hyperlipidemia Dementia DVT prophylaxis patient is already on anticoagulation with Eliquis GI prophylaxis with PPI Full code Plan: Patient will be continued on IV hydration with normal saline. Completing Paxlovid regimen today Blood pressure medications on hold due to marginal blood pressure. Continue with metoprolol and Eliquis. Encourage oral intake. Patient reports not much of an appetite and family reports has been attempting to get her to eat some. Will add Magic cups and supplements between meals Continue with Seroquel as patient is most likely having some hospital-acquired delirium on top of dementia. Discussed with the family about sitting with her frequently and reorientation along with keeping the blinds and shades open during the day and also having the patient up in the chair more often. PT OT consulted and recommending ECF for continued PT/OT therapy at this time as patient has significant weakness. Patient was independent living at home with her daughter prior to this. Case management following working on discharge planning and excepting ECF Continue supportive care with zinc, vitamin C and D supplements Encouraged to increase activity as tolerated and encouraged oral intake Continue cough medicine as needed. Maintaining oxygen saturations above 90% on room air and denies shortness of breath Due to multiple complex medical issues, overall prognosis is guarded The impression and plan of care has been dictated by Latasha Lopez, Nurse Practitioner as directed. Dr. Sulema MD I have performed a history and examination and MDM of this patient, discussed the same with the dictator, and agree with the dictator's assessment and plan as written ,documented as a scribe. Based on total visit time, I have performed more than 50% of the visit. Objective - Vital Signs Vital signs: Vital Signs Temp 98.5 F 05/30/24 02:46 Pulse 70 05/30/24 02:46 Resp 18 05/30/24 02:46 BP 100/57 05/30/24 02:46 Pulse Ox 93 L 05/30/24 02:46 FiO2 Intake & Output 05/29/24 05/29/24 05/30/24 06:59 18:59 06:59 Other: Voiding Method Toilet # Voids 2 2 3 - Labs CBC & Chem 7: 05/28/24 06:34 05/28/24 06:34
[2024-05-30 07:44] VITALS: BP 129/64; PULSE 72; RESP 15; TEMP 97.7
[2024-05-30 08:39] LABS: HCT 25.5 % (37.2-46.3); HGB 8.5 g/dL (12.0-15.0); MCH 33.7 pg (27.0-32.0); MCHC 33.3 g/dL (32.0-37.0); MCV 101.2 FL (80.0-97.0); Mean Platelet Volume 10.1 FL (9.5-12.2); NRBC Per 100 WBC 0 X 10*3/uL (0.00-0.01); Platelet Count 152 X 10*3/uL (140-440); RBC 2.52 X 10*6/uL (4.10-5.20); RDW 12.3 % (11.5-14.5); WBC 2.76 X 10*3/uL (4.50-10.00)
[2024-05-30 08:48] LABS: BUN/Creat Ratio 14.86 Ratio (12.00-20.00); Blood Urea Nitrogen 10.4 mg/dL (9.0-27.0); Calcium 8.1 mg/dL (8.7-10.3); Carbon Dioxide 21.1 mmol/L (21.6-31.8); Chloride 111 mmol/L (96-109); Glucose 105 mg/dL (70-110); Potassium 3.6 mmol/L (3.5-5.5); Sodium 142 mmol/L (135-145)
[2024-05-30 09:12] LABS: Basophils # (A) 0.02 X 10*3/uL (0.00-0.10); Basophils % (A) 0.7 %; Eosinophils # (A) 0.05 X 10*3/uL (0.04-0.35); Eosinophils % (A) 1.8 %; Lymphocytes # (A) 1.51 X 10*3/uL (0.90-5.00); Lymphocytes % (A) 54.7 %; Monocytes # (A) 0.34 X 10*3/uL (0.20-1.00); Monocytes % (A) 12.3 %; Neutrophils # (A) 0.83 X 10*3/uL (1.80-7.70); Neutrophils % (A) 30.1 %; RBC Morphology Normal (Normal)
--- NOTE | 2024-05-30 15:37 | P.DS ---
Providers Date of admission: 05/28/24 09:23 Expected date of discharge: 05/30/24 Attending physician: Delmy Leone Primary care physician: Stated None Hospital Course: Final diagnosis Acute COVID-19 infection. Patient was started on Paxlovid as an outpatient. Patient could not confirm vaccination status. Generalized weakness, decreased oral intake and appetite. Confusion, multifactorial secondary to dementia as well as some hospital- acquired delirium Acute kidney injury likely prerenal. Improving Hypovolemic hyponatremia secondary to diarrhea and poor oral intake Paroxysmal atrial fibrillation on anticoagulation with Eliquis Hypertension Hyperlipidemia Dementia DVT prophylaxis patient is already on anticoagulation with Eliquis GI prophylaxis with PPI Full code Discharge disposition Patient is being discharged in a stable condition with guarded prognosis to [facility]. Patient will follow-up with Dr. Cutler in the outpatient setting upon discharge. Patient is to continue with current medications and outpatient follow-up with primary care provider as scheduled. Total time taken is greater than 35 minutes. Hospital course This is a 83-year-old male who was recently admitted with generalized weakness acute COVID and had been taking Paxlovid outpatient although continued to be progressively more weak and not eating very well. Respiratory status is stable and patient is maintaining room air above 90% and patient reports her cough has improved. Patient does have history of dementia and home medications have been resumed. Recommend using Seroquel at night as patient also appears to be having hospital-acquired delirium. Patient has not had much of an appetite and discussed with family and recommend Magic cups and also Ensure supplements between meals and continued encouragement. Patient does have chronic diarrhea and home medications have been resumed. Patient has had no diarrhea since hospitalization and is voiding with no difficulties. Patient has been cleared for discharge and evaluated by physical therapy recommending rehab and patient and family are agreeable. Patient has been accepted at [facility] and will be going today. Currently no reports of chest pain, shortness of breath, or palpitations. Patient is afebrile. No reports of nausea or vomiting and patient is tolerating diet. Patient will be going to [facility] on [facility] today. Guarded prognosis. CODE STATUS was addressed as patient is full code and daughter reports Ms. Thapa wishes to remain full code although if it came down to being on mechanical ventilation and not recovering, then would not want any further extreme measures done. Physical exam: Gen: This is a 83-year-old female who is awake, alert and oriented x 1-2, baseline, well-developed, elderly appearing, ill-appearing HEENT: Head is atraumatic, normocephalic. Pupils equal, round. Sclerae is anicteric. NECK: Supple. No JVD. No lymphadenopathy. No thyromegaly. LUNGS: Clear to auscultation. No wheezes or rhonchi. No intercostal ret ractions. HEART: Regular rate and rhythm. No murmur. ABDOMEN: Soft. Bowel sounds are present. No masses. No tenderness. EXTREMITIES: No pedal edema. No calf tenderness. NEUROLOGICAL: Patient is awake, alert and oriented x1-2. Cranial nerves 2 through 12 are grossly intact. Diffusely weak Please refer to medication reconciliation sheet for a list of medications. The impression and plan of care has been dictated by Latasha Lopez, Nurse Practitioner as directed. Dr. Sulema MD I have performed a history and examination and MDM of this patient, discussed the same with the dictator, and agree with the dictator's assessment and plan as written ,documented as a scribe. Based on total visit time, I have performed more than 50% of the visit. Patient Condition at Discharge: Stable Plan - Discharge Summary Discharge Rx Participant: Yes New Discharge Prescriptions: New Zinc Sulfate [Orazinc] 220 mg PO DAILY 15 Days #15 cap QUEtiapine [SEROquel] 25 mg PO HS tab Benzonatate [Tessalon Perles] 100 mg PO TID PRN cap PRN Reason: Cough Albuterol Inhaler [Ventolin Hfa Inhaler] 2 puff INHALATION RT-QID each Loperamide [Imodium] 2 mg PO QID PRN cap PRN Reason: Diarrhea Pantoprazole [Protonix] 40 mg PO AC-BRKFST tab guaiFENesin SYRUP 100MG/5ML [Robitussin] 200 mg PO Q6HR PRN ml PRN Reason: Cough Ascorbic Acid [Vitamin C] 500 mg PO DAILY tab Cholecalciferol [Vitamin D3 (25 Mcg = 1000 Iu)] 25 mcg PO DAILY tab Continue Metoprolol Tartrate [Lopressor] 25 mg PO BID OLANZapine [ZyPREXA] 2.5 mg PO DAILY@1200 Acetaminophen Tab [Tylenol] 650 mg PO Q6H PRN PRN Reason: Pain Or Fever > 100.5 Methenamine Hippurate [Hiprex] 1 gm PO BID Escitalopram Oxalate [Lexapro] 10 mg PO DAILY Donepezil HCl [Aricept] 10 mg PO HS Apixaban [Eliquis] 2.5 mg PO BID gemfibroziL [Lopid] 600 mg PO BID Famotidine [Pepcid] 40 mg PO BID Discontinued Gabapentin 600 mg PO BID lisinopriL [Zestril] 10 mg PO DAILY NIFEdipine XL [Procardia Xl] 30 mg PO BID Diphenoxylate HCl/Atropine [Lomotil 2.5-0.025 mg Tablet] 1 tab PO TID PRN PRN Reason: Diarrhea Nirmatrelvir/Ritonavir [Paxlovid 150-100 mg Dose Pack] 1 dose PO BID Discharge Medication List Acetaminophen Tab [Tylenol] 650 mg PO Q6H PRN 05/26/24 [History] Apixaban [Eliquis] 2.5 mg PO BID 05/26/24 [History] Donepezil HCl [Aricept] 10 mg PO HS 05/26/24 [History] Escitalopram Oxalate [Lexapro] 10 mg PO DAILY 05/26/24 [History] Famotidine [Pepcid] 40 mg PO BID 05/26/24 [History] Methenamine Hippurate [Hiprex] 1 gm PO BID 05/26/24 [History] Metoprolol Tartrate [Lopressor] 25 mg PO BID 05/26/24 [History] OLANZapine [ZyPREXA] 2.5 mg PO DAILY@1200 05/26/24 [History] gemfibroziL [Lopid] 600 mg PO BID 05/26/24 [History] Albuterol Inhaler [Ventolin Hfa Inhaler] 2 puff INHALATION RT-QID each 05/30/24 [Rx] Ascorbic Acid [Vitamin C] 500 mg PO DAILY tab 05/30/24 [Rx] Benzonatate [Tessalon Perles] 100 mg PO TID PRN cap 05/30/24 [Rx] Cholecalciferol [Vitamin D3 (25 Mcg = 1000 Iu)] 25 mcg PO DAILY tab 05/30/24 [Rx] Loperamide [Imodium] 2 mg PO QID PRN cap 05/30/24 [Rx] Pantoprazole [Protonix] 40 mg PO AC-BRKFST tab 05/30/24 [Rx] QUEtiapine [SEROquel] 25 mg PO HS tab 05/30/24 [Rx] Zinc Sulfate [Orazinc] 220 mg PO DAILY 15 Days #15 cap 05/30/24 [Rx] guaiFENesin SYRUP 100MG/5ML [Robitussin] 200 mg PO Q6HR PRN ml 05/30/24 [Rx] Follow up Appointment(s)/Referral(s): Lauren LUX Assure, [NON-STAFF] - As Needed Jackson Cutler MD [STAFF PHYSICIAN] - 1 Week Activity/Diet/Wound Care/Special Instructions: [facility] Continue on vitamin D supplements Follow-up on repeat labs in the form of CBC, CMP, magnesium in 2 to 3 days Continue to encourage oral intake Continue with Magic cups twice daily and Ensure supplements 3 times daily between meals Follow-up primary care provider on discharge Discharge Disposition: TRANSFER TO SNF/ECF
== END 2024-05-30 16:50 | DRG 178 ==
LOC: EC 12:04 → 4SSUR 14:57 → OBSVTOIN 05-28 09:23
PROVIDERS: ADMIT Internal Medicine; ATTEND Internal Medicine
PROC: XW0DXF5 Introduction of Other New Technology Therapeutic Substance into Mouth and Pharynx, External Approach, New Technology Group 5 (ICD-10-PCS; principal; 2024-05-26)
PROC: 8E0ZXY6 Isolation (ICD-10-PCS; principal; 2024-05-26)
DX: U07.1 COVID-19 (principal); E87.1 Hypo-osmolality and hyponatremia; F05 Delirium due to known physiological condition; N17.9 Acute kidney failure, unspecified; E86.0 Dehydration; I10 Essential (primary) hypertension; K52.9 Noninfective gastroenteritis and colitis, unspecified; I48.0 Paroxysmal atrial fibrillation; E78.5 Hyperlipidemia, unspecified; F03.90 Unspecified dementia, unspecified severity, without behavioral disturbance, psychotic disturbance, mood disturbance, and anxiety; R00.1 Bradycardia, unspecified; E86.1 Hypovolemia; H91.90 Unspecified hearing loss, unspecified ear; Z88.5 Allergy status to narcotic agent; Z88.0 Allergy status to penicillin; Z79.01 Long term (current) use of anticoagulants; Z79.899 Other long term (current) drug therapy
CPT/HCPCS: 36415; 71046; 80048; 80053; 81003; 83605; 83615; 83690; 83735; 84443; 85025; 85610; 85730; 86140; 93005; 94640; 96361; 96374; 96375; 96376; 99285

== ENCOUNTER → 2024-06-05 | Outpatient (CLI) | payer MEDICARE | END | disposition home or self-care (01) | LOC: LABPRL 10:25 | PROVIDERS: ATTEND Family Medicine | DX: D64.9 Anemia, unspecified (principal) | CPT/HCPCS: 85025 ==

== ENCOUNTER 2024-06-11 23:55 | Emergency (ER) | payer MEDICARE | END 2024-06-12 03:30 | LOC: EC 23:55 | DX: R22.31 Localized swelling, mass and lump, right upper limb (principal) | CPT/HCPCS: 36415; 85652; 99283 ==

== ENCOUNTER 2025-04-17 08:21 | Day surgery (SDC) | payer MEDICARE, OTHER ==
[2025-04-15 15:15] VITALS: BMI 24.5
[2025-04-17] MEDS ORDERED: fentaNYL (PF) 50 MCG/ML 2 ML AMP IV PRN (08:41)
[2025-04-17] MEDS ORDERED: MIDAZOLAM 2 MG/2 ML VIAL IV PRN (08:41)
[2025-04-17] MEDS: IV FLUID CONTINUATION 1,000 ML IV ONE ×2 (09:00→09:49)
[2025-04-17] MEDS: LACTATED RINGERS 1,000 ML IV SCH (09:13)
[2025-04-17] MEDS: ONDANSETRON 4 MG/2 ML VIAL IVP ONE (09:13)
[2025-04-17] MEDS: DEXAMETHASONE SOD PHOSPHATE 4 MG/ML 1 ML VIAL IV ONE (09:14)
[2025-04-17] MEDS ORDERED: PROPOFOL 10 MG/ML 20 ML VIAL IV ONE (09:48)
[2025-04-17] MEDS ORDERED: fentaNYL (PF) 50 MCG/ML 2 ML AMP ONE (09:48)
[2025-04-17] MEDS ORDERED: LIDOCAINE 1% INJ 10MG/ML (20 ML MDV) ONE (09:48)
[2025-04-17] MEDS: ceFAZolin 2 GM in DEXTROSE 5% IN WATER 50 ML IVPB PRN (09:53)
[2025-04-17] MEDS: BUPIVACAINE (PF) 0.25% 30 ML VIAL SQ ONE (10:05)
[2025-04-17 10:47] VITALS: TEMP 97
--- NOTE | 2025-04-17 11:05 | P.OP ---
Date of Procedure: 04/17/25 Preoperative Diagnosis: Hammertoe deformity second digit bilateral feet Postoperative Diagnosis: Same Procedure(s) Performed: Amputation of second digit at the metatarsal phalangeal joint bilateral feet Implants: None Anesthesia: NISREEN Surgeon: Gatito Salcedo Estimated Blood Loss (ml): 3 Pathology: none sent Condition: stable Disposition: PACU Description of Procedure: The patient was brought into the op room and placed on table supine position. Timeout was taken to confirm correct patient identifiers, correct laterality of surgery, and correct procedures. Once all staff in the room was in agreement timeout, the patient was induced and placed under general anesthesia. 10 cc of 0.25% Marcaine was injected proximal to the second metatarsal phalangeal joint on both feet. A total of 20 cc was injected. Both feet were prepped and draped in the usual manner. Attention was directed to the base of the second digits, where 2 fishmouth incisions were made at the base of the second digits, leaving enough for adequate skin coverage upon closure. The apices of the incisions were dorsal and plantar. Incisions were made just down to the subcutaneous layer. Electrocautery was used to complete the dissection which also allowed vessel cauterization. This was taken down to the capsular tissue over the second metatarsal phalangeal joints. Then a scalpel was used to incise the capsule and disarticulate the digits. This procedure was done on both feet. All bleeding vessels were cauterized as necessary. Both wounds were thoroughly irrigated with antibiotic saline. Both incisions were closed with 3-0 nylon. Nonadherent gauze and dry sterile dressings were applied to both feet. The patient tolerated the above procedure and anesthesia well. The patient left the operating room to recovery with vital signs stable.
[2025-04-17 11:55] VITALS: RESP 16
[2025-04-17 12:23] VITALS: BP 129/88; PULSE 78
== END 2025-04-17 12:29 | disposition home or self-care (01) ==
LOC: OR 08:21
PROVIDERS: ATTEND Podiatrist
DX: M20.41 Other hammer toe(s) (acquired), right foot (principal); M20.42 Other hammer toe(s) (acquired), left foot; I10 Essential (primary) hypertension; I48.91 Unspecified atrial fibrillation; M19.90 Unspecified osteoarthritis, unspecified site; F03.90 Unspecified dementia, unspecified severity, without behavioral disturbance, psychotic disturbance, mood disturbance, and anxiety; Z88.5 Allergy status to narcotic agent; Z88.8 Allergy status to other drugs, medicaments and biological substances; Z88.0 Allergy status to penicillin; Z79.01 Long term (current) use of anticoagulants; Z79.899 Other long term (current) drug therapy
CPT/HCPCS: 28820 ×2; J1100; J0690; J2405; J2003; J3010; J2704; J0665

== ENCOUNTER 2025-05-14 21:38 | Observation (INO) | payer MEDICARE, OTHER ==
--- NOTE | 2025-05-14 22:03 | ED ---
Back Pain HPI - General Chief Complaint: Back Pain/Injury Stated Complaint: right flank pain Time Seen by Provider: 05/14/25 21:46 Source: patient Limitations: no limitations - History of Present Illness Initial Comments: 84-year-old female presenting from [facility] with chief complaint of right flank pain. Has been ongoing for 3 to 4 days. She denies any injury or trauma. Some radiation to the abdomen. No fever. No saddle paresthesia. Patient is incontinent at baseline. She did have a UA and abdominal ultrasound performed at [facility], urine was negative for infection and ultrasound showed dilated common bile duct otherwise no acute findings. No vomiting. No urinary sy mptoms. - Related Data Home Medications Medication Instructions Recorded Confirmed Acetaminophen Tab [Tylenol] 650 mg PO Q6H PRN 05/26/24 05/15/25 Apixaban [Eliquis] 2.5 mg PO BID 05/26/24 05/15/25 Donepezil HCl [Aricept] 10 mg PO HS 05/26/24 05/15/25 Metoprolol Tartrate [Lopressor] 25 mg PO BID 05/26/24 05/15/25 gemfibroziL [Lopid] 600 mg PO BID 05/26/24 05/15/25 Albuterol Inhaler [Ventolin Hfa 2 puff INHALATION RT-QID PRN 04/16/25 05/15/25 Inhaler] Cholestyramine (with Sugar) 4 gm PO BID 04/16/25 05/15/25 [Cholestyramine Packet] Diclofenac Sodium Gel [Voltaren 1% 1 applic TOPICAL BID 04/16/25 05/15/25 Gel] Ensure Clear 1 can PO TID@0900,1300,2100 04/16/25 05/15/25 Hemorrhoidal Rectal Ointment 1 applic TOPICAL QID PRN 04/16/25 05/15/25 Methyl Salicylate/Menth/Camph 1 patch TOPICAL DAILY 04/16/25 05/15/25 [Salonpas 3.1%-6.0%-10.0% Patch] traMADol HCL 50 mg PO Q6H PRN 04/16/25 05/15/25 traZODone HCL [Desyrel] 25 mg PO HS 04/16/25 05/15/25 amLODIPine [Norvasc] 5 mg PO DAILY 05/15/25 05/15/25 Previous Rx's Medication Instructions Recorded Cholecalciferol [Vitamin D3 (25 25 mcg PO DAILY tab 05/30/24 Mcg = 1000 Iu)] Loperamide [Imodium] 2 mg PO QID PRN cap 05/30/24 Pantoprazole [Protonix] 40 mg PO AC-BRKFST tab 05/30/24 Allergies Allergy/AdvReac Type Severity Reaction Status Date / Time adhesive tape Allergy Rash/Hives Verified 05/15/25 07:31 codeine Allergy Unknown Verified 05/15/25 07:31 Penicillins Allergy Anaphylaxis Verified 05/15/25 07:31 Review of Systems ROS Statement: Those systems with pertinent positive or pertinent negative responses have been documented in the HPI. ROS Other: All systems not noted in ROS Statement are negative. Past Medical History Past Medical History: Atrial Fibrillation, Hypertension, Osteoarthritis (OA) History of Any Multi-Drug Resistant Organisms: None Reported Past Surgical History: Adenoidectomy, Appendectomy, Ear Surgery, Hysterectomy, Tonsillectomy Past Anesthesia/Blood Transfusion Reactions: No Reported Reaction, Unable to Obtain Past Psychological History: No Psychological Hx Reported Smoking Status: Never smoker Past Alcohol Use History: Occasional Past Drug Use History: None Reported General Exam Limitations: no limitations General appearance: alert, in no apparent distress Head exam: Present: atraumatic, normocephalic, normal inspection Eye exam: Present: normal appearance, EOMI Neck exam: Present: normal inspection. Absent: meningismus Respiratory exam: Absent: respiratory distress Cardiovascular Exam: Present: regular rate Back exam: Present: normal inspection, tenderness Neurological exam: Present: alert, oriented X3 Psychiatric exam: Present: normal affect, normal mood Skin exam: Present: warm, dry, normal color Course Vital Signs 05/14/25 05/14/25 05/15/25 21:43 23:11 00:33 Temperature 97.5 F L Pulse Rate 60 56 L 84 Respiratory 18 16 18 Rate Blood Pressure 195/68 174/76 164/61 O2 Sat by Pulse 100 97 95 Oximetry 05/15/25 00:48 Temperature 98 F Pulse Rate 65 Respiratory 18 Rate Blood Pressure 159/60 O2 Sat by Pulse 97 Oximetry Medical Decision Making - Medical Decision Making Was pt. sent in by a medical professional or institution (, PA, RESEARCH AND DEVELOPMENT RESEARCHER, urgent care, hospital, or snf...) When possible be specific @ -[facility] Did you speak to anyone other than the patient for history (EMS, parent, family, police, friend...)? What history was obtained from this source @ -Daughter Did you review nursing and triage notes (agree or disagree)? Why? @ -I reviewed and agree with nursing and triage notes Were old charts reviewed (outside hosp., previous admission, EMS record, old EKG , old radiological studies, urgent care reports/EKG's, snf records)? Report findings @ -No old charts were reviewed Differential Diagnosis (chest pain, altered mental status, abdominal pain women, abdominal pain men, vaginal bleeding, weakness, fever, dyspnea, syncope, headache, dizziness, GI bleed, back pain, seizure, CVA, palpatations, mental health, musculoskeletal)? @ - [facility] Differential Back Pain: Strain, zoster, cauda equina syndrome, epidural abscess, vertebral osteomyelitis, discitis, fracture, subluxation, disc herniation, DJD, spinal stenosis, dissection, AAA, pancreatitis, peptic ulcer disease, pyelonephritis, kidney stone… this is not meant to be an all-inclusive list. EKG interpreted by me (3pts min.). @ -As above X-rays interpreted by me (1pt min.). @ -None done CT interpreted by me (1pt min.). @ -CT shows no evidence for acute abdominal/pelvic process within the limitations of a noncontrast exam. No evidence for obstructive uropathy. Marked splenomegaly. Further workup is recommended. Calcified disc herniated material at the T10 level resulting in at least mild spinal canal stenosis and severe right neuroforaminal stenosis U/S interpreted by me (1pt. min.). @ -None done What testing was considered but not performed or refused? (CT, X-rays, U/S, labs)? Why? @ -None What meds were considered but not given or refused? Why? @ -None Did you discuss the management of the patient with other professionals (professionals i.e. , PA, RESEARCH AND DEVELOPMENT RESEARCHER, lab, RT, psych nurse, social media specialist, accounts supervisor, teacher, facilities officer, window caser)? Give summary @ -My attending spoke with the [facility] provider on-call who accepts admission Was smoking cessation discussed for >3mins.? @ -No Was critical care preformed (if so, how long)? @ -No Were there social determinants of health that impacted care today? How? (Homelessness, low income, unemployed, alcoholism, drug addiction, transportation, low edu. Level, literacy, decrease access to med. care, m[facility], rehab)? @ -No Was there de-escalation of care discussed even if they declined (Discuss DNR or withdrawal of care, Hospice)? DNR status @ -No What co-morbidities impacted this encounter? (DM, HTN, Smoking, COPD, CAD, Cancer, CVA, ARF, Chemo, Hep., AIDS, mental health diagnosis, sleep apnea, morbid obesity)? @ -None Was patient admitted / discharged? Hospital course, mention meds given and route, prescriptions, significant lab abnormalities, going to OR and other pertinent info. @ -84-year-old female presenting with chief complaint of right sided back pain. No injury or trauma. No saddle paresthesia. Incontinent at baseline. History and physical examination are conducted. Right sided paraspinal muscle tenderness is noted. Lab work requires no immediate action. CT does show mild spinal canal stenosis and severe neuroforaminal stenosis. Patient is still having quite a bit of pain after multiple rounds of pain medication. We will admit her and consult orthopedics. She is agreeable with this plan. I discussed this case with my attending Dr. De La Vega Undiagnosed new problem with uncertain prognosis? @ -No Drug Therapy requiring intensive monitoring for toxicity (Heparin, Nitro, Insulin, Cardizem)? @ -No Were any procedures done? @ -No Diagnosis/symptom? @ -Intractable back pain Acute, or Chronic, or Acute on Chronic? @ -Acute Uncomplicated (without systemic symptoms) or Complicated (systemic symptoms)? @ -Complicated Side effects of treatment? @ -No Exacerbation, Progression, or Severe Exacerbation? @ -No Poses a threat to life or bodily function? How? (Chest pain, USA, MA, pneumonia, PE, COPD, DKA, ARF, appy, cholecystitis, CVA, Diverticulitis, Homicidal, Suicidal, threat to staff... and all critical care pts) @ -Potential - Lab Data Result diagrams: 05/14/25 22:05 05/14/25 22:05 Lab Results 05/14/25 05/14/25 05/14/25 Range/Units 22:05 22:05 23:25 WBC 4.31 L (4.50-10.00) 10*3/uL RBC 3.40 L (4.10-5.20) 10*6/uL Hgb 11.6 L (12.0-15.0) g/dL Hct 33.2 L (37.2-46.3) % MCV 97.6 H (80.0-97.0) fL MCH 34.1 H (27.0-32.0) pg MCHC 34.9 (32.0-37.0) g/dL Plt Count 124 L (140-440) 10*3/uL MPV 9.4 L (9.5-12.2) fL Immature Gran % (Auto) 0.7 % Neutrophils % 66.2 % Lymphocytes % 29.0 % Monocytes % 3.2 % Eosinophils % 0.7 % Basophils % 0.2 % Immature Gran # 0.03 (0.00-0.04) 10*3/uL Neutrophils # 2.85 (1.80-7.70) 10*3/uL Lymphocytes # 1.25 (0.90-5.00) 10*3/uL Monocytes # 0.14 L (0.20-1.00) 10*3/uL Eosinophils # 0.03 L (0.04-0.35) 10*3/uL Basophils # 0.01 (0.00-0.10) 10*3/uL Manual Slide Review Performed Sodium 136 L (137-145) mmol/L Potassium 4.0 (3.5-5.1) mmol/L Chloride 101 (98-107) mmol/L Carbon Dioxide 19 L (22-30) mmol/L Anion Gap 16 mmol/L BUN 18 H (7-17) mg/dL Creatinine 0.69 (0.52-1.04) mg/dL Est GFR (CKD-EPI)AfAm >90 (>60 ml/min/1.73 sqM) Est GFR (CKD-EPI)NonAf 79 (>60 ml/min/1.73 sqM) Glucose 134 H (74-99) mg/dL Calcium 9.7 (8.4-10.2) mg/dL Total Bilirubin 0.5 (0.2-1.3) mg/dL AST 27 (14-36) U/L ALT 14 (4-34) U/L Alkaline Phosphatase 111 (38-126) U/L Total Protein 6.5 (6.3-8.2) g/dL Albumin 4.2 (3.5-5.0) g/dL Urine Color Colorless Urine Appearance Clear (Clear) Urine pH 5.0 (5.0-8.0) Ur Specific [place] 1.010 (1.001-1.035) Urine Protein Negative (Negative) Urine Glucose (UA) Negative (Negative) Urine Ketones Negative (Negative) Urine Blood Negative (Negative) Urine Nitrite Negative (Negative) Urine Bilirubin Negative (Negative) Urine Urobilinogen <2.0 (<2.0) mg/dL Ur Leukocyte Esterase Negative (Negative) Disposition Clinical Impression: Intractable back pain Disposition: ADMITTED IP TO THIS [facility] Condition: Fair Time of Disposition: 23:55
[2025-05-14] MEDS: LIDOCAINE 4% PATCH TOPICAL ONE (22:10)
[2025-05-14] MEDS: MORPHINE SULFATE 4 MG/ML SYRINGE IVP STA (22:11)
[2025-05-14 22:14] LABS: Basophils # (A) 0.01 10*3/uL (0.00-0.10); Basophils % (A) 0.2 %; Eosinophils # (A) 0.03 10*3/uL (0.04-0.35); Eosinophils % (A) 0.7 %; HCT 33.2 % (37.2-46.3); HGB 11.6 g/dL (12.0-15.0); Lymphocytes # (A) 1.25 10*3/uL (0.90-5.00); Lymphocytes % (A) 29.0 %; MCH 34.1 pg (27.0-32.0); MCHC 34.9 g/dL (32.0-37.0); MCV 97.6 fL (80.0-97.0); Monocytes # (A) 0.14 10*3/uL (0.20-1.00); Monocytes % (A) 3.2 %; Neutrophils # (A) 2.85 10*3/uL (1.80-7.70); Neutrophils % (A) 66.2 %; Platelet Count 124 10*3/uL (140-440); RBC 3.40 10*6/uL (4.10-5.20); RDW 12.3 % (11.5-14.5); WBC 4.31 10*3/uL (4.50-10.00)
[2025-05-14 22:40] LABS: ALT 14 U/L (4-34); AST 27 U/L (14-36); African American GFR (CKD) >90 (>60 ml/min/1.73 sqM); Albumin 4.2 g/dL (3.5-5.0); Alkaline Phosphatase 111 U/L (38-126); Anion Gap 16 mmol/L; Blood Urea Nitrogen 18 mg/dL (7-17); Calcium 9.7 mg/dL (8.4-10.2); Carbon Dioxide 19 mmol/L (22-30); Chloride 101 mmol/L (98-107); Glucose 134 mg/dL (74-99); Non-African American GFR(CKD) 79 (>60 ml/min/1.73 sqM); Potassium 4.0 mmol/L (3.5-5.1); Sodium 136 mmol/L (137-145); Total Protein 6.5 g/dL (6.3-8.2)
--- NOTE | 2025-05-14 23:02 | CT ---
EXAMINATION TYPE: CT abdomen pelvis wo con CT DLP: 633.1 mGycm, Automated exposure control for dose reduction was used. DATE OF EXAM: 05/14/2025 10:31 PM COMPARISON: Pelvic radiograph 04/20/2024 CLINICAL INDICATION:Female, 84 years old with history of R flank pain; TECHNIQUE: Standard CT of the abdomen and pelvis without IV or oral contrast. Lack of IV or oral co ntrast limits evaluation of solid and hollow organ viscera. Coronal and sagittal reformats were perfo rmed. FINDINGS: LOWER CHEST: Posterior mild dependent subsegmental atelectasis is noted. Small aortic valvular calcif ications. Mild coronary arterial calcifications visualized. No significant pericardial effusion. ABDOMEN LIVER: Punctate calcified granuloma anteriorly. GALLBLADDER AND BILE DUCTS: Gallbladder is surgically absent with mild intrahepatic and extra hepatic biliary dilatation likely physiologic and a postcholecystectomy change. No evidence of choledocholit hiasis. PANCREAS: Unremarkable noncontrast appearance SPLEEN: Enlarged measuring 19.5 cm in CC dimension. There is some mild mass effect upon the left kidn ey. ADRENAL GLANDS: Unremarkable noncontrast appearance. KIDNEYS AND URETERS: No evidence of hydronephrosis or renal calculus. No hydroureter or ureteral calc ulus identified. PELVIS BLADDER: Unremarkable REPRODUCTIVE: The uterus is surgically absent. ABDOMEN & PELVIS STOMACH AND BOWEL: Stomach and duodenum are unremarkable. No focal bowel wall thickening or stranding inflammatory changes. The appendix is not identified. No evidence of bowel obstruction. PERITONEUM: No evidence of pneumoperitoneum or free fluid. VASCULATURE: Moderate atherosclerotic calcifications are present throughout the abdominal aorta and i ts branches. No evidence of aortic aneurysm. MUSCULOSKELETAL: No acute osseous abnormalities. Degenerative changes of the pubic symphysis. No aggr essive osseous lesion. Mild dextrocurvature of the lumbar spine. Multilevel degenerative disc disease of the thoracolumbar spine. Grade 1 anterolisthesis of L3 on L4 without evidence of pars defects. Ca lcified disc material at the anterior right aspect of the spinal canal at the T10 level. Results in a t least mild spinal canal stenosis with severe right neural foraminal stenosis at this level. LYMPH NODES: No gross evidence for lymphadenopathy. SOFT TISSUE/ABDOMINAL WALL: Unremarkable IMPRESSION: 1. No CT evidence for acute abdominal/pelvic process within the limitations of a noncontrast exam. N o evidence for obstructive uropathy. 2. Marked splenomegaly. Further workup is recommended. 3. Calcified disc herniated material at the T10 level resulting in at least mild spinal canal stenosi s and severe right neural foraminal stenosis. [facility], , 05/14/2025 10:59 PM
[2025-05-14] MEDS: HYDROmorphone 1 MG/ML 1 ML SYRINGE IVP STA (23:33)
[2025-05-14] MEDS ORDERED: NALOXONE 0.4 MG/ML 1 ML VIAL IV PRN (23:53)
[2025-05-14] MEDS ORDERED: ONDANSETRON 4 MG/2 ML VIAL IVP PRN (23:53)
[2025-05-14] MEDS ORDERED: HYDROmorphone 0.5 MG/0.5 ML SYRINGE IVP PRN (23:53)
[2025-05-15 05:04] LABS: Bilirubin,Urine Negative (Negative); Blood,Urine Negative (Negative); Color,Urine Colorless; Glucose,Urine (UA) Negative (Negative); Ketones,Urine Negative (Negative); Leukocyte Esterase,Urine Negative (Negative); Nitrite,Urine Negative (Negative); PH, Urine 5.0 (5.0-8.0); Protein,Urine Negative (Negative); Specific Gravity,Urine 1.010 (1.001-1.035); Urobilinogen,Urine <2.0 mg/dL (<2.0)
[2025-05-15] MEDS ORDERED: ALBUTEROL NEBULIZED 2.5 MG/3 ML INHALATION PRN (08:14)
[2025-05-15] MEDS: amLODIPine 5 MG TAB PO SCH (10:15)
[2025-05-15] MEDS: FENOFIBRATE 160 MG TAB PO SCH (10:15)
[2025-05-15] MEDS: HYDROmorphone 1 MG/ML 1 ML SYRINGE IVP PRN (10:15)
--- NOTE | 2025-05-15 12:43 | P.CNOR ---
History of Present Illness - [facility] Consult date: 05/15/25 Requesting physician: Shaq Hinojosa Consult reason: other (Right lumbar paraspinal pain) History of present illness: Patient is a very pleasant 84-year-old female who was seen and examined at bedside for further evaluation of her lumbar spine. She resides at [facility]. She states over the past 4 days she has been experiencing significant right sided paraspinal muscle pain. She denies any injuries. She denies any midline pain. She does not have any pain with palpation over her right paraspinal muscles. She feels the pain is deep. She is not experiencing any lower ex tremity weakness or radiculopathy bilaterally. She ambulates a lot while at [facility]. She has no other complaints at the bedside other than her right paraspinal pain. She has had CT imaging of the abdomen and pelvis performed. She does have significant change at her lumbar spine. 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 She has not been on medication for leukemia over the past 4 years. She does follow with oncology at [facility] in [place], [place]. She is admitted to medicine. She has a history of atrial fibrillation and hy pertension. CT imaging did show evidence of splenomegaly. Past Medical History Past Medical History: Atrial Fibrillation, Hypertension, Osteoarthritis (OA) History of Any Multi-Drug Resistant Organisms: None Reported Past Surgical History: Adenoidectomy, Appendectomy, Ear Surgery, Hysterectomy, T onsillectomy Past Anesthesia/Blood Transfusion Reactions: No Reported Reaction, Unable to Obtain Past Psychological History: No Psychological Hx Reported Smoking Status: Never smoker Past Alcohol Use History: Occasional Past Drug Use History: None Reported Medications and Allergies Home Medications Medication Instructions Recorded Confirmed Type Acetaminophen Tab [Tylenol] 650 mg PO Q6H PRN 05/26/24 05/15/25 History Apixaban [Eliquis] 2.5 mg PO BID 05/26/24 05/15/25 History Donepezil HCl [Aricept] 10 mg PO HS 05/26/24 05/15/25 History Metoprolol Tartrate [Lopressor] 25 mg PO BID 05/26/24 05/15/25 History gemfibroziL [Lopid] 600 mg PO BID 05/26/24 05/15/25 History Cholecalciferol [Vitamin D3 (25 25 mcg PO DAILY tab 05/30/24 05/15/25 Rx Mcg = 1000 Iu)] Loperamide [Imodium] 2 mg PO QID PRN cap 05/30/24 05/15/25 Rx Pantoprazole [Protonix] 40 mg PO AC-BRKFST tab 05/30/24 05/15/25 Rx Albuterol Inhaler [Ventolin Hfa 2 puff INHALATION RT-QID PRN 04/16/25 05/15/25 History Inhaler] Cholestyramine (with Sugar) 4 gm PO BID 04/16/25 05/15/25 History [Cholestyramine Packet] Diclofenac Sodium Gel [Voltaren 1% 1 applic TOPICAL BID 04/16/25 05/15/25 History Gel] Ensure Clear 1 can PO TID@0900,1300,2100 04/16/25 05/15/25 History Hemorrhoidal Rectal Ointment 1 applic TOPICAL QID PRN 04/16/25 05/15/25 History Methyl Salicylate/Menth/Camph 1 patch TOPICAL DAILY 04/16/25 05/15/25 History [Salonpas 3.1%-6.0%-10.0% Patch] traMADol HCL 50 mg PO Q6H PRN 04/16/25 05/15/25 History traZODone HCL [Desyrel] 25 mg PO HS 04/16/25 05/15/25 History amLODIPine [Norvasc] 5 mg PO DAILY 05/15/25 05/15/25 History Allergies Allergy/AdvReac Type Severity Reaction Status Date / Time adhesive tape Allergy Rash/Hives Verified 05/15/25 07:31 codeine Allergy Unknown Verified 05/15/25 07:31 Penicillins Allergy Anaphylaxis Verified 05/15/25 07:31 Physical Examination Lumbar spine examination: Patient is awake, alert, and oriented 3 Good active range of motion of the bilateral lower extremities independently Dorsiflexion, plantarflexion, and extensor hallucis longus positive sustained bilateral lower extremities Soft nontender No pain with internal and external rotation of the hips bilaterally Examination of the lumbar spine does not show any erythema, bruising, laceration, or sign of infection No pain with palpation along the midline of the lumbar spine No pain with palpation at the lumbosacral junction No pain over the paraspinal muscles of the lumbar spine on the left with the right. Results Pertinent studies: CT of the abdomen and pelvis taken on 05/14/2025: Degenerative scoliosis; T10-11 calcified disc with mild spinal canal stenosis and right foraminal stenosis; L2- 3 and L4-5 asymmetric degenerative disc disease; L5-S1 severe degenerative disc disease; splenomegaly - Labs Labs: Abnormal Lab Results - Last 24 Hours (Table) 05/14/25 05/14/25 Range/Units 22:05 22:05 WBC 4.31 L (4.50-10.00) 10*3/uL RBC 3.40 L (4.10-5.20) 10*6/uL Hgb 11.6 L (12.0-15.0) g/dL Hct 33.2 L (37.2-46.3) % MCV 97.6 H (80.0-97.0) fL MCH 34.1 H (27.0-32.0) pg Plt Count 124 L (140-440) 10*3/uL MPV 9.4 L (9.5-12.2) fL Monocytes # 0.14 L (0.20-1.00) 10*3/uL Eosinophils # 0.03 L (0.04-0.35) 10*3/uL Sodium 136 L (137-145) mmol/L Carbon Dioxide 19 L (22-30) mmol/L BUN 18 H (7-17) mg/dL Glucose 134 H (74-99) mg/dL H & H 05/14/25 Range/Units 22:05 Hgb 11.6 L (12.0-15.0) g/dL Hct 33.2 L (37.2-46.3) % Result Diagrams: 05/14/25 22:05 05/14/25 22:05 Assessment and Plan Assessment: Assessment: Acute right lumbar paraspinal muscle pain Lumbar myalgia Lumbar degenerative scoliosis Lumbar degenerative disc disease Lumbosacral degenerative disc disease T10-11 mild spinal canal stenosis and foraminal stenosis Splenomegaly Atrial fibrillation Hypertension CML (1) Lumbar degenerative disc disease Current Visit: Yes Status: Acute Code(s): M51.369 - OTH INTVRT DISC DEGEN, LUM RGN W/O LUM BCK OR LW EXTRM PAIN SNOMED Code(s): 14897590 (2) Scoliosis of lumbar region due to degenerative disease of spine in adult Current Visit: Yes Status: Acute Code(s): M41.56 - OTHER SECONDARY SCOLIOSIS, LUMBAR REGION SNOMED Code(s): 6316507378 (3) Pain in right paraspinal region Current Visit: Yes Status: Acute Code(s): M54.9 - DORSALGIA, UNSPECIFIED SNOMED Code(s): 868437322 (4) Splenomegaly Current Visit: Yes Status: Acute Code(s): R16.1 - SPLENOMEGALY, NOT ELSEWHERE CLASSIFIED SNOMED Code(s): 70453258 (5) A-fib Current Visit: Yes Status: Acute Code(s): I48.91 - UNSPECIFIED ATRIAL FIBRILLATION SNOMED Code(s): 89259767 (6) HTN (hypertension) Current Visit: Yes Status: Acute Code(s): I10 - ESSENTIAL (PRIMARY) HYPERT ENSION SNOMED Code(s): 82267349 (7) CML (chronic myelocytic leukemia) Current Visit: Yes Status: Acute Code(s): C92.10 - CHRONIC MYELOID LEUK, BCR/ABL-POSITIVE, NOT ACHIEVE REMIS SNOMED Code(s): 08742481 (8) Myalgia Current Visit: Yes Status: Acute Code(s): M79.10 - MYALGIA, UNSPECIFIED SITE SNOMED Code(s): 94120994 Plan: Plan: 1. The patient states over the past 4 days she has been experiencing significant right sided paraspinal muscle pain. She denies any injuries. She denies any midline pain. She does not have any pain with palpation over her right paraspinal muscles. She feels the pain is deep. She is not experiencing any lower extremity weakness or radiculopathy bilaterally. She ambulates a lot while at [facility]. She has no other complaints at the bedside other than her right paraspinal pain. She was have significant multilevel degenerative changes her lumbar spine with degenerative disc disease and degenerative scoliosis. I do not see any obvious compression fracture. She has no midline pain. Her pain is most significant over her right paraspinal muscles. This pain is not exacerbated with palpation over her paraspinal muscles on the right. Her symptoms do not appear to be stemming specifically from her lumbar spine in which invasive treatment would provide any significant improvement of her symptoms. We did discuss she could benefit from muscle relaxer medication. We will also plan for consultation with pain management. Patient would like to work through all conservative treatment options. Patient would like to avoid any surgical intervention. Currently patient is neurovascularly intact with good active range of motion of her bilateral lower extremities. She does not experience any lower extremity weakness or radiculopathy. She may mobilize to her tolerance. She may work with physical therapy. Currently, we would have her work through all conservative treatment options including therapy and evaluation and possible treatment with pain management. We will plan have her follow-up in outpatient setting for further treatment evaluation as needed. Patient and family feels us a good plan of care. 2. She will continue be seen examined by medicine for her other medical diagnoses. 3. Patient currently waiting for evaluation by pain management Time with Patient: Greater than 30
[2025-05-15] MEDS: APIXABAN 2.5 MG TABLET PO SCH (13:09)
--- NOTE | 2025-05-15 14:31 | P.HPIM ---
History of Present Illness H&P Date: 05/15/25 Chief Complaint: Intractable back pain History of present illness; 83-year-old female with a past medical history of atrial fibrillation on anticoagulation with Eliquis, hypertension, hyperlipidemia, remote history of CML diagnosed in 2010, and dementia was brought to the hospital due to complaints of intractable back pain. States she has had back pain for many years, but 4 days ago she noticed her right-sided lower back pain getting worse which progressed over the following days up until yesterday when it was so bad that she could not bear it anymore and decided to come to the ER for further evaluation. Patient's daughter is present at bedside during interview. Daughter states the patient was diagnosed with CML in [address] Ceron who works out of [employer] who treated her with to Tesigna up until 2019 when she was in remission. Of note daughter states that her mother's initial presenting symptom of the CML was right sided lower back pain similar to the one she is describing today. Patient reports that she tried [id number] medications at home but nothing seem to help, denies weakness loss of sensation in the lower extremities as well as denying loss of bowel. States that she does have some loss of urine but this is chronic for her and did not start recently. Reports she is still able to ambulate and get up with her walker and go to the bathroom. While in the ER patient received lab work significant for WBC 4131, hemoglobin 11.6, MCV 97.6, platelet count 124, sodium 136, potassium 4, bicarb 19, BUN 19, creatinine 0.69, and glucose 134. UA was within normal limits. CT abdomen and pelvis showed no evidence for acute abdominal/pelvic process within the limitations of a noncontrast exam, no evidence of obstructive uropathy, marked splenomegaly, and calcified disc herniated material at the T10 level resulting in at least mild spinal canal stenosis and severe right neural foraminal stenosis. At this time was deemed necessary for the patient to be admitted for further evaluation of intractable back pain with consultation to orthopedics and pain management. REVIEW OF SYSTEMS: As stated above in HPI. The rest of the 14-point review of systems is negative. PHYSICAL EXAMINATION: GENERAL: The patient is alert and oriented x3, not in any acute distress. Well developed, well nourished. HEENT: Pupils are round and equally reacting to light. EOMI. No scleral icterus. No conjunctival pallor. Normocephalic, atraumatic. CARDIOVASCULAR: S1 and S2 present. No murmurs, rubs, or gallops. PULMONARY: Chest is clear to auscultation b/l, no wheezing or crackles. ABDOMEN: Soft, nontender, nondistended, normoactive bowel sounds. No palpable organomegaly. MUSCULOSKELETAL: No joint swelling or deformity. Decreased range of motion with lumbar extension and flexion. EXTREMITIES: No cyanosis, clubbing, or pedal edema. NEUROLOGICAL: Gross neurological examination did not reveal any focal deficits. SKIN: No rashes. Assessment and Plan #Intractable back pain: - Potentially secondary to the calcified disc herniated material at T10 as well as spinal canal stenosis and right neuroforaminal stenosis - Continue IV pain medication as needed, titrate down as tolerated, as needed polyethylene glycol for potential constipation secondary to opioid use - Continued patient's home tramadol - Orthopedics consulted, no acute intervention at this time we will continue to follow - Pain management consulted for potential injections, appreciate further recommendations - PT OT ordered #Splenomegaly: #Pancytopenia - Incidental finding on CT, does have some mass effect but unlikely related to patient's back pain as the back pain is mostly right-sided - Slight thrombocytopenia, platelets 124 - Continue to monitor Chronic Conditions: #Atrial fibrillation: - Resume home Eliquis dose #Hypertension: - Resume home amlodipine - Likely component of current hypertension while in the hospital is related to pain - Will hold metoprolol for now as patient is slightly bradycardic #Hyperlipidemia: - Continue gemfibrozil 600 mg p.o. twice daily #Dementia: - Continue donepezil 10 mg p.o. at bedtime #History of CML: - As above in HPI patient's initial complaint before being diagnosed with CML was back pain in the same location, it is unlikely that CML was playing a role in the patient's current back pain - Will hold off on heme/onc consultation for now as hematologically patient is relatively stable and any further cancer workup can be done as an outpatient F: None E: None N: Heart healthy diet DVT ppx: Eliquis 5 mg p.o. twice daily GI ppx: Protonix 40 mg p.o. AC breakfast CODE STATUS: Full code Dispo: Pending clinical course Ross Cheatham MD PGY-2 FM Dictation was produced using [employer] dictation software. please excuse any grammatical, word or spelling errors. Past Medical History Past Medical History: Atrial Fibrillation, Hypertension, Osteoarthritis (OA) History of Any Multi-Drug Resistant Organisms: None Reported Past Surgical History: Adenoidectomy, Appendectomy, Ear Surgery, Hysterectomy, Tonsillectomy Past Anesthesia/Blood Transfusion Reactions: No Reported Reaction, Unable to Obtain Past Psychological History: No Psychological Hx Reported Smoking Status: Never smoker Past Alcohol Use History: Occasional Past Drug Use History: None Reported Medications and Allergies Home Medications Medication Instructions Recorded Confirmed Type Acetaminophen Tab [Tylenol] 650 mg PO Q6H PRN 05/26/24 05/15/25 History Apixaban [Eliquis] 2.5 mg PO BID 05/26/24 05/15/25 History Donepezil HCl [Aricept] 10 mg PO HS 05/26/24 05/15/25 History Metoprolol Tartrate [Lopressor] 25 mg PO BID 05/26/24 05/15/25 History gemfibroziL [Lopid] 600 mg PO BID 05/26/24 05/15/25 History Cholecalciferol [Vitamin D3 (25 25 mcg PO DAILY tab 05/30/24 05/15/25 Rx Mcg = 1000 Iu)] Loperamide [Imodium] 2 mg PO QID PRN cap 05/30/24 05/15/25 Rx Pantoprazole [Protonix] 40 mg PO AC-BRKFST tab 05/30/24 05/15/25 Rx Albuterol Inhaler [Ventolin Hfa 2 puff INHALATION RT-QID PRN 04/16/25 05/15/25 History Inhaler] Cholestyramine (with Sugar) 4 gm PO BID 04/16/25 05/15/25 History [Cholestyramine Packet] Diclofenac Sodium Gel [Voltaren 1% 1 applic TOPICAL BID 04/16/25 05/15/25 History Gel] Ensure Clear 1 can PO TID@0900,1300,2100 04/16/25 05/15/25 History Hemorrhoidal Rectal Ointment 1 applic TOPICAL QID PRN 04/16/25 05/15/25 History Methyl Salicylate/Menth/Camph 1 patch TOPICAL DAILY 04/16/25 05/15/25 History [Salonpas 3.1%-6.0%-10.0% Patch] traMADol HCL 50 mg PO Q6H PRN 04/16/25 05/15/25 History traZODone HCL [Desyrel] 25 mg PO HS 04/16/25 05/15/25 History amLODIPine [Norvasc] 5 mg PO DAILY 05/15/25 05/15/25 History Allergies Allergy/AdvReac Type Severity Reaction Status Date / Time adhesive tape Allergy Rash/Hives Verified 05/15/25 07:31 codeine Allergy Unknown Verified 05/15/25 07:31 Penicillins Allergy Anaphylaxis Verified 05/15/25 07:31 Physical Exam Vitals: Vital Signs Temp Pulse Pulse Resp BP BP Pulse Ox 05/15/25 07:30 98.3 F 58 L 14 164/64 97 05/15/25 01:30 98.1 F 56 L 18 208/47 99 05/15/25 00:48 98 F 65 18 159/60 97 05/15/25 00:33 84 18 164/61 95 05/14/25 23:11 56 L 16 174/76 97 05/14/25 21:43 97.5 F L 60 18 195/68 100 Intake and Output 05/14/25 05/15/25 05/15/25 22:59 06:59 14:59 Intake Total 300 Balance 300 Intake: Oral 300 Other: Voiding Method Toilet Diaper # Voids 1 Weight 63.503 kg 63.503 kg Results CBC & Chem 7: 05/14/25 22:05 05/14/25 22:05 Labs: Abnormal Lab Results - Last 24 Hours (Table) 05/14/25 05/14/25 Range/Units 22:05 22:05 WBC 4.31 L (4.50-10.00) 10*3/uL RBC 3.40 L (4.10-5.20) 10*6/uL Hgb 11.6 L (12.0-15.0) g/dL Hct 33.2 L (37.2-46.3) % MCV 97.6 H (80.0-97.0) fL MCH 34.1 H (27.0-32.0) pg Plt Count 124 L (140-440) 10*3/uL MPV 9.4 L (9.5-12.2) fL Monocytes # 0.14 L (0.20-1.00) 10*3/uL Eosinophils # 0.03 L (0.04-0.35) 10*3/uL Sodium 136 L (137-145) mmol/L Carbon Dioxide 19 L (22-30) mmol/L BUN 18 H (7-17) mg/dL Glucose 134 H (74-99) mg/dL Thrombosis Risk Factor Assmnt - Choose All That Apply Each Risk Factor Represents 3 Points: Age 75 years or older Thrombosis Risk Factor Assessment Total Risk Factor Score: 3 Thrombosis Risk Factor Assessment Level: Moderate Risk
[2025-05-15] MEDS: traMADol 50 MG TAB PO PRN (14:49)
[2025-05-15] MEDS ORDERED: ROPIVACAINE 5 MG/ML 30 ML VIAL ONE (16:39)
[2025-05-15] MEDS ORDERED: methylPREDNISolone ACETATE 40 MG/ML 1 ML VIAL ONE (16:39)
--- NOTE | 2025-05-15 16:48 | P.PAINCN ---
History of Present Illness - History of Present Illness This is 84-year-old female who has been complaining of pain in the lower thor acic spine area radiating down posterior lateral lower thoracic wall area. Patient denies any fall or trauma. Pain is there all the time intensity she describes as 10/10. Relates pain is throbbing aching in character. Any movement increases the pain. Denies any motor weakness in any part of the body. Denies any sensory loss in any part of the body denies any new bowel bladder incontinence. Denies any shortness of breath. Past Medical History Past Medical History: Atrial Fibrillation, Hypertension, Osteoarthritis (OA) History of Any Multi-Drug Resistant Organisms: None Reported Past Surgical History: Adenoidectomy, Appendectomy, Ear Surgery, Hysterectomy, Tonsillectomy Past Anesthesia/Blood Transfusion Reactions: No Reported Reaction, Unable to Obtain Past Psychological History: No Psychological Hx Reported Smoking Status: Never smoker Past Alcohol Use History: Occasional Past Drug Use History: None Reported Medications and Allergies Home Medications Medication Instructions Recorded Confirmed Type Acetaminophen Tab [Tylenol] 650 mg PO Q6H PRN 05/26/24 05/15/25 History Apixaban [Eliquis] 2.5 mg PO BID 05/26/24 05/15/25 History Donepezil HCl [Aricept] 10 mg PO HS 05/26/24 05/15/25 History Metoprolol Tartrate [Lopressor] 25 mg PO BID 05/26/24 05/15/25 History gemfibroziL [Lopid] 600 mg PO BID 05/26/24 05/15/25 History Cholecalciferol [Vitamin D3 (25 25 mcg PO DAILY tab 05/30/24 05/15/25 Rx Mcg = 1000 Iu)] Loperamide [Imodium] 2 mg PO QID PRN cap 05/30/24 05/15/25 Rx Pantoprazole [Protonix] 40 mg PO AC-BRKFST tab 05/30/24 05/15/25 Rx Albuterol Inhaler [Ventolin Hfa 2 puff INHALATION RT-QID PRN 04/16/25 05/15/25 History Inhaler] Cholestyramine (with Sugar) 4 gm PO BID 04/16/25 05/15/25 History [Cholestyramine Packet] Diclofenac Sodium Gel [Voltaren 1% 1 applic TOPICAL BID 04/16/25 05/15/25 History Gel] Ensure Clear 1 can PO TID@0900,1300,2100 04/16/25 05/15/25 History Hemorrhoidal Rectal Ointment 1 applic TOPICAL QID PRN 04/16/25 05/15/25 History Methyl Salicylate/Menth/Camph 1 patch TOPICAL DAILY 04/16/25 05/15/25 History [Salonpas 3.1%-6.0%-10.0% Patch] traMADol HCL 50 mg PO Q6H PRN 04/16/25 05/15/25 History traZODone HCL [Desyrel] 25 mg PO HS 04/16/25 05/15/25 History amLODIPine [Norvasc] 5 mg PO DAILY 05/15/25 05/15/25 History Allergies Allergy/AdvReac Type Severity Reaction Status Date / Time adhesive tape Allergy Rash/Hives Verified 05/15/25 07:31 codeine Allergy Unknown Verified 05/15/25 07:31 Penicillins Allergy Anaphylaxis Verified 05/15/25 07:31 Physical Exam Vitals: Vital Signs Temp Pulse Pulse Resp BP BP Pulse Ox 05/15/25 12:48 97.8 F 59 L 16 175/70 100 05/15/25 07:30 98.3 F 58 L 14 164/64 97 05/15/25 01:30 98.1 F 56 L 18 208/47 99 05/15/25 00:48 98 F 65 18 159/60 97 05/15/25 00:33 84 18 164/61 95 05/14/25 23:11 56 L 16 174/76 97 05/14/25 21:43 97.5 F L 60 18 195/68 100 Intake and Output 05/15/25 05/15/25 05/15/25 06:59 14:59 22:59 Intake Total 300 Balance 300 Intake: Oral 300 Other: Voiding Method Toilet Toilet Diaper Diaper # Voids 1 Weight 63.503 kg Physical exam is limited secondary to pain. Thoracic spine. Significant tenderness on palpation over right thoracic spine around T10 areas. Some tenderness on the lower proximal thoracic ribs area also. Spine range of motion is decreased secondary to pain. Motor strength of upper and lower extremities grossly 5/5. Sensation to touch is grossly intact bilaterally. Results CBC & Chem 7: 05/14/25 22:05 05/14/25 22:05 Labs: Abnormal Lab Results - Last 24 Hours (Table) 05/14/25 05/14/25 Range/Units 22:05 22:05 WBC 4.31 L (4.50-10.00) 10*3/uL RBC 3.40 L (4.10-5.20) 10*6/uL Hgb 11.6 L (12.0-15.0) g/dL Hct 33.2 L (37.2-46.3) % MCV 97.6 H (80.0-97.0) fL MCH 34.1 H (27.0-32.0) pg Plt Count 124 L (140-440) 10*3/uL MPV 9.4 L (9.5-12.2) fL Monocytes # 0.14 L (0.20-1.00) 10*3/uL Eosinophils # 0.03 L (0.04-0.35) 10*3/uL Sodium 136 L (137-145) mmol/L Carbon Dioxide 19 L (22-30) mmol/L BUN 18 H (7-17) mg/dL Glucose 134 H (74-99) mg/dL Assessment and Plan Assessment: 1. Thoracic disc degenerative disease. 2. Thoracic spine spondylosis. 3. Thoracic radiculopathy. Plan: 1. Patient is on Eliquis. Will get MRI of thoracic spine without contrast. 2. Depending on the MRI result patient may need thoracic epidural steroid injection. Eliquis needs to be off for 3 days if decide to do thoracic SANDI based on upcoming MRI. 3. For temporary pain relief I did thoracic right paraspinal trigger point injection tonight. PQRS Measure Charge Sheet PQRS Narrative: Blood Pressure [Right Arm] 175/70 Blood Pressure 159/60 Pain Intensity 7 Pain Scale Used Numeric (1 - 10) Scale Used Numeric (1 - 10) Home Medications: Ambulatory Orders Acetaminophen Tab [Tylenol] 650 mg PO Q6H PRN 05/26/24 Apixaban [Eliquis] 2.5 mg PO BID 05/26/24 Donepezil HCl [Aricept] 10 mg PO HS 05/26/24 Metoprolol Tartrate [Lopressor] 25 mg PO BID 05/26/24 gemfibroziL [Lopid] 600 mg PO BID 05/26/24 Cholecalciferol [Vitamin D3 (25 Mcg = 1000 Iu)] 25 mcg PO DAILY tab 05/30/24 Loperamide [Imodium] 2 mg PO QID PRN cap 05/30/24 Pantoprazole [Protonix] 40 mg PO AC-BRKFST tab 05/30/24 Albuterol Inhaler [Ventolin Hfa Inhaler] 2 puff INHALATION RT-QID PRN 04/16/25 Cholestyramine (with Sugar) [Cholestyramine Packet] 4 gm PO BID 04/16/25 Diclofenac Sodium Gel [Voltaren 1% Gel] 1 applic TOPICAL BID 04/16/25 Ensure Clear 1 can PO TID@0900,1300,2100 04/16/25 Hemorrhoidal Rectal Ointment 1 applic TOPICAL QID PRN 04/16/25 Methyl Salicylate/Menth/Camph [Salonpas 3.1%-6.0%-10.0% Patch] 1 patch TOPICAL DAILY 04/16/25 traMADol HCL 50 mg PO Q6H PRN 04/16/25 traZODone HCL [Desyrel] 25 mg PO HS 04/16/25 amLODIPine [Norvasc] 5 mg PO DAILY 05/15/25
--- NOTE | 2025-05-15 16:50 | P.PCN ---
Description of Procedure: Preprocedure diagnosis. Myofascial pain. Myofascial trigger point. Postprocedure diagnosis. As above. Procedure done. Myofascial trigger point injection with local anesthetics and steroid at 2 points. Anesthesia. Ethyl chloride spray. Local anesthetic infiltration. In the OR continuous pulse ox, EKG, blood pressure, and verbal communication was maintained with the patient. Blood loss. None. Indication. Discussed with the patient procedure, alternatives and possible complications which may include infection, bleeding, nerve damage, aggravation of pain. Patient understands and all questions were answered. Procedure note. After getting consent patient in the procedure area. Most tender points were identified and marked. A 25-gauge needle attached to syringe was introduced at the trigger points and after negative aspiration 5 mL solution are injected at each trigger point. I injected 2 trigger points in right thoracic paraspinal muscles around T10, T11 levels. Total solution consists of 10 ml 0.5%Ropivacaine mixed with 40 mg Depomedrol. Disposition. Patient tolerated the procedure well. No complication. Discharged home in stable condition.
[2025-05-15] MEDS: APIXABAN 5 MG TAB PO SCH (16:51)
[2025-05-15] MEDS ORDERED: hydrALAZINE HCL 20 MG/ML 1 ML VIAL IVP PRN (18:40)
[2025-05-15] MEDS: DONEPEZIL 10 MG TAB PO SCH (20:45)
[2025-05-16] MEDS: MELATONIN 5 MG TABLET PO PRN (00:16)
[2025-05-16 07:51] LABS: HCT 32.1 % (37.2-46.3); HGB 10.8 g/dL (12.0-15.0); MCH 32.9 pg (27.0-32.0); MCHC 33.6 g/dL (32.0-37.0); MCV 97.9 fL (80.0-97.0); Platelet Count 125 10*3/uL (140-440); RBC 3.28 10*6/uL (4.10-5.20); RDW 12.3 % (11.5-14.5); WBC 3.60 10*3/uL (4.50-10.00)
[2025-05-16 07:57] LABS: ALT 17 U/L (4-34); AST 24 U/L (14-36); African American GFR (CKD) 90 (>60 ml/min/1.73 sqM); Albumin 3.9 g/dL (3.5-5.0); Albumin/Globulin Ratio 1.9; Alkaline Phosphatase 89 U/L (38-126); Anion Gap 9 mmol/L; Blood Urea Nitrogen 14 mg/dL (7-17); Calcium 9.3 mg/dL (8.4-10.2); Carbon Dioxide 24 mmol/L (22-30); Chloride 105 mmol/L (98-107); Globulin 2.1 g/dL; Glucose 106 mg/dL (74-99); Non-African American GFR(CKD) 78 (>60 ml/min/1.73 sqM); Potassium 3.8 mmol/L (3.5-5.1); Sodium 138 mmol/L (137-145); Total Protein 6.0 g/dL (6.3-8.2)
[2025-05-16] MEDS: PANTOPRAZOLE 40 MG TABLET PO SCH (08:29)
[2025-05-16 08:34] LABS: Anisocytosis (M) Present; Lymphocytes # (M) 1.26 k/uL (1.0-4.8); Monocytes # (M) 0.07 k/uL (0-1.0); Neutrophils # (M) 2.27 k/uL (1.3-7.7); Neutrophils % (M) 63 %; Total Cells Counted 100
--- NOTE | 2025-05-16 14:48 | P.PN ---
Subjective Progress Note Date: 05/16/25 Chief Complaint: Intractable back pain History of present illness; 83-year-old female with a past medical history of atrial fibrillation on anticoagulation with Eliquis, hypertension, hyperlipidemia, remote history of CML diagnosed in 2010, and dementia was brought to the hospital due to complaints of intractable back pain. States she has had back pain for many years, but 4 days ago she noticed her right-sided lower back pain getting worse which progressed over the following days up until yesterday when it was so bad that she could not bear it anymore and decided to come to the ER for further evaluation. Patient's daughter is present at bedside during interview. Daughter states the patient was diagnosed with CML in [address] Ceron who works out of [employer] who treated her with to Tesigna up until 2019 when she was in remission. Of note daughter states that her mother's initial presenting symptom of the CML was right sided lower back pain similar to the one she is describing today. Patient reports that she tried [id number] medications at home but nothing seem to help, denies weakness loss of sensation in the lower extremities as well as denying loss of bowel. States that she does have some loss of urine but this is chronic for her and did not start recently. Reports she is still able to ambulate and get up with her walker and go to the bathroom. While in the ER patient received lab work significant for WBC 4131, hemoglobin 11.6, MCV 97.6, platelet count 124, sodium 136, potassium 4, bicarb 19, BUN 19, creatinine 0.69, and glucose 134. UA was within normal limits. CT abdomen and pelvis showed no evidence for acute abdominal/pelvic process within the limitations of a noncontrast exam, no evidence of obstructive uropathy, marked splenomegaly, and calcified disc herniated material at the T10 level resulting in at least mild spinal canal stenosis and severe right neural foraminal stenosis. At this time was deemed necessary for the patient to be admitted for further evaluation of intractable back pain with consultation to orthopedics and pain management. Subjective: 05/16/2025: Patient seen at bedside. No significant overnight events. Patient is tearful this morning, states her back pain is significantly improved and would like to go home. States she does not like the food and misses her family. Spoke with the patient's daughter who is POA, the patient herself was asking to leave but has dementia and after speaking with the daughter she wants the patient to stay to complete the treatment regimen. Pertinent positives and negatives discussed above, a complete review of systems was preformed and all the other sytems were negative. Vitals Signs Reveiwed. General: non toxic, no distress, appears at stated age, normal weight Derm: no unusual rashes/lesions, warm Head: atraumatic, normocephalic, symmetric Eyes: EOMI, no lid lag, anicteric sclera, pupils equal round reactive to light ENT: Nose and ears atraumatic Neck: No cervical lymphadenopathy, trachea midline, supple Mouth: no lip lesion, mucus membranes moist Cardiovascular: S1S2 reg, no murmur, positive dorsalis pedis pulse bilateral, no edema Lungs: Decreased air entry bilaterally, no rhonchi, no rales, no accessory muscle use Abdominal: soft, nontender to palpation, no guarding Ext: muscle strength 5 out of 5 in all 4 extremities grossly, no gross muscle a trophy, no contractures, Psych: Alert, oriented, appropriate affect Data Reveiwed Today: Patient Labs: WBC 3.6, hemoglobin 10.8, MCV 97.9, platelet 125, sodium 138, potassium 3.8, bicarb 24, creatinine 0.71, glucose 106, and total protein 6. Imaging: No new imaging to Assessment and Plan #Intractable back pain: - Potentially secondary to the calcified disc herniated material at T10 as well as spinal canal stenosis and right neuroforaminal stenosis - Continue IV pain medication as needed, titrate down as tolerated, as needed polyethylene glycol for potential constipation secondary to opioid use - MRI thoracic spine without contrast ordered - Continued patient's home tramadol - Orthopedics consulted, no acute intervention at this time we will continue to follow - Pain management consulted have ordered MRI thoracic spine, and plans to do epidural steroid injection after holding Eliquis for 3 days - Myofascial trigger point procedures performed by pain management without complications yesterday (05/15) - PT OT: Pending evaluation from PT but OT have cleared the patient to return to the group home at the same level of mobility she previously had #Splenomegaly: #Pancytopenia - Incidental finding on CT, does have some mass effect but unlikely related to patient's back pain as the back pain is mostly right-sided - Slight thrombocytopenia, platelets 124 - Continue to monitor Chronic Conditions: #Atrial fibrillation: - Hold Eliquis for epidural steroid injection by pain management on Sunday (05/18) #Hypertension: - Resume home amlodipine - Likely component of current hypertension while in the hospital is related to pain - Will hold metoprolol for now as patient is slightly bradycardic #Hyperlipidemia: - Continue gemfibrozil 600 mg p.o. twice daily #Dementia: - Continue donepezil 10 mg p.o. at bedtime #History of CML: - As above in HPI patient's initial complaint before being diagnosed with CML was back pain in the same location, it is unlikely that CML was playing a role in the patient's current back pain - Will hold off on heme/onc consultation for now as hematologically patient is relatively stable and any further cancer workup can be done as an outpatient F: None E: None N: Heart healthy diet DVT ppx: Eliquis 5 mg p.o. twice daily GI ppx: Protonix 40 mg p.o. AC breakfast CODE STATUS: Full code Dispo: Back pain significantly improved from admission, pending MRI of thoracic spine and epidural steroid injection by pain management after Eliquis has been held for 3 days. Ross Cheatham MD PGY-2 FM Objective - Vital Signs Vital signs: Vital Signs Temp 98.1 F 05/16/25 01:42 Pulse 67 05/16/25 01:42 Resp 16 05/16/25 01:42 BP 155/65 05/16/25 01:42 Pulse Ox 96 05/16/25 01:42 FiO2 Intake & Output 05/15/25 05/16/25 05/16/25 18:59 06:59 18:59 Intake Total 1160 240 Balance 1160 240 Intake: Oral 1160 Other 240 Other: Voiding Method Toilet Bedside Commode Diaper Diaper # Voids 4 2 - Labs CBC & Chem 7: 05/16/25 07:28 05/16/25 07:28
[2025-05-16] MEDS ORDERED: HYDROmorphone 0.5 MG/0.5 ML SYRINGE IVP PRN (15:05)
[2025-05-16] MEDS ORDERED: MORPHINE SULFATE 2 MG/ML SYRINGE IVP PRN (15:06)
--- NOTE | 2025-05-16 16:29 | MR ---
EXAMINATION TYPE: MR thoracic spine wo con DATE OF EXAM: 05/16/2025 3:54 PM COMPARISON: CT abdomen/pelvis dated 05/14/2025.. CLINICAL INDICATION: Female, 84 years old with history of back pain; PHH, Back pain TECHNIQUE: Multi planar, multi sequence imaging was performed utilizing: T1-weighted, short-tau inver arelis recovery and T2-weighted of the thoracic spine. FINDINGS: Alignment: [Curvature of the cervicothoracic spine. No significant spondylolisthesis. Vertebral margaret s have preserved heights. Spinal cord/Discs: Central posterior disc protrusion at T7-T8 minimally effacing the ventral thecal s ac. Additional tiny right paracentral posterior disc protrusion at T8-T9. Large posterior disc osteop hyte complex eccentric to the right at T10-T11 causes severe spinal canal stenosis and mass effect on the adjacent spinal cord there is T2 hyperintense cord signal abnormality at this level suggesting m yelomalacia. Severe right neural foraminal stenosis at T10-T11. Posterior right paracentral disc prot rusion at T11-T12 effaces the ventral thecal sac and causes mild right neural foraminal narrowing. No significant spinal canal stenosis at this level. Osseous structures: No abnormal bony edema on inversion recovery sequences. Multilevel osteophyte for mation and facet joint arthropathy. IMPRESSION: 1. No acute fracture. 2. 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 [facility], , 05/16/2025 4:26 PM
--- NOTE | 2025-05-17 10:56 | P.PN ---
Subjective Chief Complaint: Intractable back pain History of present illness; 83-year-old female with a past medical history of atrial fibrillation on anticoagulation with Eliquis, hypertension, hyperlipidemia, remote history of CML diagnosed in 2010, and dementia was brought to the hospital due to complaints of intractable back pain. States she has had back pain for many years, but 4 days ago she noticed her right-sided lower back pain getting worse which progressed over the following days up until yesterday when it was so bad that she could not bear it anymore and decided to come to the ER for further evaluation. Patient's daughter is present at bedside during interview. Daughter states the patient was diagnosed with CML in [address] Ceron who works out of [employer] who treated her with to Tesigna up until 2019 when she was in remission. Of note daughter states that her mother's initial presenting symptom of the CML was right sided lower back pain similar to the one she is describing today. Patient reports that she tried [id number] medications at home but nothing seem to help, denies weakness loss of sensation in the lower extremities as well as denying loss of bowel. States that she does have some loss of urine but this is chronic for her and did not start recently. Reports she is still able to ambulate and get up with her walker and go to the bathroom. While in the ER patient received lab work significant for WBC 4131, hemoglobin 11.6, MCV 97.6, platelet count 124, sodium 136, potassium 4, bicarb 19, BUN 19, creatinine 0.69, and glucose 134. UA was within normal limits. CT abdomen and pelvis showed no evidence for acute abdominal/pelvic process within the limitations of a noncontrast exam, no evidence of obstructive uropathy, marked splenomegaly, and calcified disc herniated material at the T10 level resulting in at least mild spinal canal stenosis and severe right neural foraminal sten osis. At this time was deemed necessary for the patient to be admitted for further evaluation of intractable back pain with consultation to orthopedics and pain management. Subjective: 05/16/2025: Patient seen at bedside. No significant overnight events. Patient is tearful this morning, states her back pain is significantly improved and would like to go home. States she does not like the food and misses her family. Spoke with the patient's daughter who is POA, the patient herself was asking to leave but has dementia and after speaking with the daughter she wants the patient to stay to complete the treatment regimen. 05/17/2025: Patient seen at bedside no significant overnight events patient is feeling much better this morning pain has decreased she is enjoying her breakfast. Plan for steroid injection tomorrow. Pain well-controlled at this time Pertinent positives and negatives discussed above, a complete review of systems was preformed and all the other sytems were negative. Vitals Signs Reveiwed. General: non toxic, no distress, appears at stated age, normal weight Derm: no unusual rashes/lesions, warm Head: atraumatic, normocephalic, symmetric Eyes: EOMI, no lid lag, anicteric sclera, pupils equal round reactive to light ENT: Nose and ears atraumatic Neck: No cervical lymphadenopathy, trachea midline, supple Mouth: no lip lesion, mucus membranes moist Cardiovascular: S1S2 reg, no murmur, positive dorsalis pedis pulse bilateral, no edema Lungs: Decreased air entry bilaterally, no rhonchi, no rales, no accessory muscle use Abdominal: soft, nontender to palpation, no guarding Ext: muscle strength 5 out of 5 in all 4 extremities grossly, no gross muscle atrophy, no contractures, Psych: Alert, oriented, appropriate affect Data Reveiwed Today: Patient Labs: WBC 3.6, hemoglobin 10.8, MCV 97.9, platelet 125, sodium 138, potassium 3.8, bicarb 24, creatinine 0.71, glucose 106, and total protein 6. Imaging: No new imaging to Assessment and Plan #Intractable back pain: - Potentially secondary to the calcified disc herniated material at T10 as well as spinal canal stenosis and right neuroforaminal stenosis - Continue IV pain medication as needed, titrate down as tolerated, as needed polyethylene glycol for potential constipation secondary to opioid use - MRI thoracic spine without contrast ordered - Continued patient's home tramadol - Orthopedics consulted, no acute intervention at this time we will continue to follow - Pain management consulted have ordered MRI thoracic spine, and plans to do epidural steroid injection after holding Eliquis for 3 days - Myofascial trigger point procedures performed by pain management without complications yesterday (05/15) - PT OT: Pending evaluation from PT but OT have cleared the patient to return to the custodial at the same level of mobility she previously had #Splenomegaly: #Pancytopenia - Incidental finding on CT, does have some mass effect but unlikely related to patient's back pain as the back pain is mostly right-sided - Slight thrombocytopenia, platelets 124 - Continue to monitor Chronic Conditions: #Atrial fibrillation: - Hold Eliquis for epidural steroid injection by pain management on Sunday (05/18) #Hypertension: - Resume home amlodipine - Likely component of current hypertension while in the hospital is related to pain - Will hold metoprolol for now as patient is slightly bradycardic #Hyperlipidemia: - Continue gemfibrozil 600 mg p.o. twice daily #Dementia: - Continue donepezil 10 mg p.o. at bedtime #History of CML: - As above in HPI patient's initial complaint before being diagnosed with CML was back pain in the same location, it is unlikely that CML was playing a role in the patient's current back pain - Will hold off on heme/onc consultation for now as hematologically patient is relatively stable and any further cancer workup can be done as an outpatient F: None E: None N: Heart healthy diet DVT ppx: Eliquis 5 mg p.o. twice daily GI ppx: Protonix 40 mg p.o. AC breakfast CODE STATUS: Full code Dispo: Back pain significantly improved from admission, pending MRI of thoracic spine and epidural steroid injection by pain management after Eliquis has been held for 3 days. Objective - Vital Signs Vital signs: Vital Signs Temp 98.0 F 05/17/25 06:20 Pulse 65 05/17/25 01:10 Resp 16 05/17/25 01:10 BP 155/66 05/17/25 01:10 Pulse Ox 98 05/17/25 01:10 FiO2 Intake & Output 05/16/25 05/17/25 05/17/25 18:59 06:59 18:59 Intake Total 476 Balance 476 Intake: Oral 476 Other: Voiding Method Diaper Toilet Toilet Diaper Diaper # Voids 1 1 # Bowel Movements 2 - Labs CBC & Chem 7: 05/16/25 07:28 05/16/25 07:28
[2025-05-17] MEDS: CHOLESTYRAMINE RESIN 4 GM PACKET PO SCH (13:07)
[2025-05-18 07:45] LABS: HCT 32.9 % (37.2-46.3); HGB 11.0 g/dL (12.0-15.0); MCH 33.1 pg (27.0-32.0); MCHC 33.4 g/dL (32.0-37.0); MCV 99.1 FL (80.0-97.0); NRBC Per 100 WBC 0 X 10*3/uL (0.00-0.01); Platelet Count 129 X 10*3/uL (140-440); RBC 3.32 X 10*6/uL (4.10-5.20); RDW 12.5 % (11.5-14.5); WBC 4.86 X 10*3/uL (4.50-10.00)
[2025-05-18 08:04] LABS: Anion Gap 12.70 mmol/L (4.00-12.00); BUN/Creat Ratio 14.50 Ratio (12.00-20.00); Blood Urea Nitrogen 11.6 mg/dL (9.0-27.0); Calcium 9.1 mg/dL (8.7-10.3); Carbon Dioxide 24.3 mmol/L (21.6-31.8); Chloride 105 mmol/L (96-109); Glucose 114 mg/dL (70-110); Potassium 3.7 mmol/L (3.5-5.5); Sodium 142 mmol/L (135-145)
[2025-05-18 10:28] LABS: Basophils # (A) 0.02 X 10*3/uL (0.00-0.10); Basophils % (A) 0.4 %; Eosinophils # (A) 0.02 X 10*3/uL (0.04-0.35); Eosinophils % (A) 0.4 %; Immature Grans, Automated 0.40 %; Lymphocytes # (A) 1.73 X 10*3/uL (0.90-5.00); Lymphocytes % (A) 35.6 %; Monocytes # (A) 0.36 X 10*3/uL (0.20-1.00); Monocytes % (A) 7.4 %; Neutrophils # (A) 2.71 X 10*3/uL (1.80-7.70); Neutrophils % (A) 55.8 %
[2025-05-18] MEDS: QUEtiapine 25 MG TAB PO STA (14:58)
--- NOTE | 2025-05-18 15:26 | P.PN ---
Subjective Chief Complaint: Intractable back pain History of present illness; 83-year-old female with a past medical history of atrial fibrillation on anticoagulation with Eliquis, hypertension, hyperlipidemia, remote history of CML diagnosed in 2010, and dementia was brought to the hospital due to complaints of intractable back pain. States she has had back pain for many years, but 4 days ago she noticed her right-sided lower back pain getting worse which progressed over the following days up until yesterday when it was so bad that she could not bear it anymore and decided to come to the ER for further evaluation. Patient's daughter is present at bedside during interview. Daughter states the patient was diagnosed with CML in [address] Ceron who works out of [employer] who treated her with to Tesigna up until 2019 when she was in remission. Of note daughter states that her mother's initial presenting symptom of the CML was right sided lower back pain similar to the one she is describing today. Patient reports that she tried [id number] medications at home but nothing seem to help, denies weakness loss of sensation in the lower extremities as well as denying loss of bowel. States that she does have some loss of urine but this is chronic for her and did not start recently. Reports she is still able to ambulate and get up with her walker and go to the bathroom. While in the ER patient received lab work significant for WBC 4131, hemoglobin 11.6, MCV 97.6, platelet count 124, sodium 136, potassium 4, bicarb 19, BUN 19, creatinine 0.69, and glucose 134. UA was within normal limits. CT abdomen and pelvis showed no evidence for acute abdominal/pelvic process within the limitations of a noncontrast exam, no evidence of obstructive uropathy, marked splenomegaly, and calcified disc herniated material at the T10 level resulting in at least mild spinal canal stenosis and severe right neural foraminal sten osis. At this time was deemed necessary for the patient to be admitted for further evaluation of intractable back pain with consultation to orthopedics and pain management. Subjective: 05/16/2025: Patient seen at bedside. No significant overnight events. Patient is tearful this morning, states her back pain is significantly improved and would like to go home. States she does not like the food and misses her family. Spoke with the patient's daughter who is POA, the patient herself was asking to leave but has dementia and after speaking with the daughter she wants the patient to stay to complete the treatment regimen. 05/17/2025: Patient seen at bedside no significant overnight events patient is feeling much better this morning pain has decreased she is enjoying her breakfast. Plan for steroid injection tomorrow. Pain well-controlled at this time 05/18/2025: Patient seen at bedside no overnight events, pain has been well- controlled thought she was going to OR today, scheduled for tomorrow 05/19 at 11:30 AM Pertinent positives and negatives discussed above, a complete review of systems was preformed and all the other sytems were negative. Vitals Signs Reveiwed. General: non toxic, no distress, appears at stated age, normal weight Derm: no unusual rashes/lesions, warm Head: atraumatic, normocephalic, symmetric Eyes: EOMI, no lid lag, anicteric sclera, pupils equal round reactive to light ENT: Nose and ears atraumatic Neck: No cervical lymphadenopathy, trachea midline, supple Mouth: no lip lesion, mucus membranes moist Cardiovascular: S1S2 reg, no murmur, positive dorsalis pedis pulse bilateral, no edema Lungs: Decreased air entry bilaterally, no rhonchi, no rales, no accessory muscle use Abdominal: soft, nontender to palpation, no guarding Ext: muscle strength 5 out of 5 in all 4 extremities grossly, no gross muscle atrophy, no contractures, Psych: Alert, oriented, appropriate affect Data Reveiwed Today: Patient Labs: WBC 3.6, hemoglobin 10.8, MCV 97.9, platelet 125, sodium 138, potassium 3.8, bicarb 24, creatinine 0.71, glucose 106, and total protein 6. Imaging: No new imaging to Assessment and Plan #Intractable back pain: - Potentially secondary to the calcified disc herniated material at T10 as well as spinal canal stenosis and right neuroforaminal stenosis - Continue IV pain medication as needed, titrate down as tolerated, as needed polyethylene glycol for potential constipation secondary to opioid use - MRI thoracic spine without contrast ordered - Continued patient's home tramadol - Orthopedics consulted, no acute intervention at this time we will continue to follow - Pain management consulted have ordered MRI thoracic spine, and plans to do epidural steroid injection after holding Eliquis for 3 days - Myofascial trigger point procedures performed by pain management without complications yesterday (05/15) - PT OT: Pending evaluation from PT but OT have cleared the patient to return to the intermediate at the same level of mobility she previously had #Splenomegaly: #Pancytopenia - Incidental finding on CT, does have some mass effect but unlikely related to patient's back pain as the back pain is mostly right-sided - Slight thrombocytopenia, platelets 124 - Continue to monitor Chronic Conditions: #Atrial fibrillation: - Hold Eliquis for epidural steroid injection by pain management on Saturday 05/19 11:30 am #Hypertension: - Resume home amlodipine - Likely component of current hypertension while in the hospital is related to pain - Will hold metoprolol for now as patient is slightly bradycardic #Hyperlipidemia: - Continue gemfibrozil 600 mg p.o. twice daily #Dementia: - Continue donepezil 10 mg p.o. at bedtime #History of CML: - As above in HPI patient's initial complaint before being diagnosed with CML was back pain in the same location, it is unlikely that CML was playing a role in the patient's current back pain - Will hold off on heme/onc consultation for now as hematologically patient is relatively stable and any further cancer workup can be done as an outpatient F: None E: None N: Heart healthy diet DVT ppx: Eliquis 5 mg p.o. twice daily GI ppx: Protonix 40 mg p.o. AC breakfast CODE STATUS: Full code Dispo: Back pain significantly improved from admission, pending MRI of thoracic spine and epidural steroid injection by pain management after Eliquis has been held for 3 days. Objective - Vital Signs Vital signs: Vital Signs Temp 97.7 F 05/18/25 06:55 Pulse 63 05/18/25 06:55 Resp 20 05/18/25 11:31 BP 171/73 05/18/25 06:55 Pulse Ox 96 05/18/25 06:55 FiO2 Intake & Output 05/17/25 05/18/25 05/18/25 18:59 06:59 18:59 Intake Total 1050 500 Balance 1050 500 Intake: Oral 1050 500 Other: Voiding Method Toilet Toilet Toilet Diaper Diaper Diaper # Voids 3 1 2 # Bowel Movements 1 1 - Labs CBC & Chem 7: 05/18/25 02:50 05/18/25 02:50 Labs: Abnormal Lab Results - Last 24 Hours (Table) 05/18/25 05/18/25 Range/Units 02:50 02:50 RBC 3.32 L (4.10-5.20) X 10*6/uL Hgb 11.0 L (12.0-15.0) g/dL Hct 32.9 L (37.2-46.3) % MCV 99.1 H (80.0-97.0) FL MCH 33.1 H (27.0-32.0) pg Plt Count 129 L (140-440) X 10*3/uL Eosinophils # 0.02 L (0.04-0.35) X 10*3/uL Anion Gap 12.70 H (4.00-12.00) mmol/L Glucose 114 H (70-110) mg/dL
[2025-05-19] MEDS ORDERED: methylPREDNISolone ACETATE 80 MG/ML 1 ML VIAL ONE (11:42)
[2025-05-19] MEDS ORDERED: IOPAMIDOL M300 15ML VIAL ONE (11:42)
[2025-05-19] MEDS ORDERED: fentaNYL (PF) 50 MCG/ML 2 ML AMP ONE (11:42)
--- NOTE | 2025-05-19 12:03 | P.PCN ---
Description of Procedure: PREOPERATIVE DIAGNOSIS: 1- Thoracic Degenerative Disc Diseases 2-Thoracic spondylosis. 3-Thoracic spinal stenosis POSTOPERATIVE DIAGNOSIS: 1-Thoracic degenerative disc disease. 2-Thoracic spondylosis 3-Thoracic spinal stenosis. PROCEDURE Injection of radio contrast material into T 10-11 interspace, interpretation of epidurogram, injection of steroid at T 10-11 epidural space under fluoroscopic guidance. ANESTHESIA: Lidocaine 1% subcutaneously. In OR continuous pulse ox, EKG, blood pressure and verbal communication was maintained with the patient. EBL: Minimal PROCEDURE INDICATION: Before the procedure were discussed with the patient detailed procedure, alternatives, complications including lung puncture, infection, bleeding, nerve damage, paralysis all of which could be permanent. Patient understands and all questions were answered. Had a long discussion with patient and her daughter regarding MRI report, opti ons of surgical evaluation, epidural steroid injections. At this time patient and her daughter wants to proceed with epidural steroid injection and do not want to consider surgical options. Discussed the procedure and possible complications which may include lung puncture, infection, bleeding, nerve, damage, paralysis all of which could be permanent. PROCEDURE DESCRIPTION : After getting consent, patient in OR in prone position. Back was prepped with chlorhexidine and draped in sterile fashion. After injecting 10 mL of 1% lidocaine subcutaneously, a 20-gauge Tuohy needle was introduced at T 10-11 interspace with loss of resistance technique using a syringe filled with air. Negative CSF, negative blood, negative paresthesia. Needle position was confirmed with AP and lateral view of the fluoroscope. After repeat negative aspiration 2 mL of Omnipaque 200 water soluble contrast was injected. Contrast was noted in the epidural space. No contrast was noted into intrathecal or intr avascular space. After repeat negative aspiration 4 mL solution was injected intermittently which consists of 3 mL of preservative-free normal saline mixed with 1 mL of 80 mg Depo-Medrol. Needle was withdrawn intact. Skin was cleansed and Band-Aids was applied. DISPOSITION / PLANS: The patient tolerated the procedure well. No complication. The patient was placed in a supine position and transferred to the recovery area in a stable condition for observation. There was no evidence of lower extremity motor or sensory deficit after the procedure. Patient was discharged from the recovery room after meeting discharge criteria. Home discharge instructions were given to the patient by the staff. The patient was reexamined prior to discharge. The patient will schedule a follow up in the clinic in 2-4 weeks.
--- NOTE | 2025-05-19 12:31 | FL ---
Fluoroscopy INDICATION: Pain FINDINGS: Fluoroscopy time: 21 seconds. Total dose area product (DAP) in uGy*m?, mGy*cm? (or similar): 0.02964 Images obtained: 3. Images document needle directed towards the epidural space IMPRESSION: 1. Documentation of fluoroscopy. [facility], Workstation: [facility], 05/19/2025 12:29 PM
[2025-05-19] MEDS: ACETAMINOPHEN TAB 325 MG TAB PO PRN (13:06)
[2025-05-19 14:23] VITALS: BP 182/72; PULSE 67; RESP 17; TEMP 97.8
--- NOTE | 2025-05-19 14:59 | P.DS ---
Providers Date of admission: 05/14/25 23:59 Attending physician: Hilario Kapoor Consults: 05/14/25 23:53 Consult Physician Urgent Consulting Provider: Mike Bella Consult Reason/Comments: Back pain Do you want consulting provider notified?: Yes, Notify in am Primary care physician: Jackson Cutler Hospital Course: Discharge Diagnosis: [] Hospital Course: Chief Complaint: Intractable back pain History of present illness; 83-year-old female with a past medical history of atrial fibrillation on anticoagulation with Eliquis, hypertension, hyperlipidemia, remote history of CML diagnosed in 2010, and dementia was brought to the hospital due to complaints of intractable back pain. States she has had back pain for many years, but 4 days ago she noticed her right-sided lower back pain getting worse which progressed over the following days up until yesterday when it was so bad that she could not bear it anymore and decided to come to the ER for further evaluation. Patient's daughter is present at bedside during interview. Daughter states the patient was diagnosed with CML in [address] Ceron who works out of [employer] who treated her with to Tesigna up until 2019 when she was in remission. Of note daughter states that her mother's initial presenting symptom of the CML was right sided lower back pain similar to the one she is describing today. Patient reports that she tried [id number] medications at home but nothing seem to help, denies weakness loss of sensation in the lower extremities as well as denying loss of bowel. States that she does have some loss of urine but this is chronic for her and did not start recently. Reports she is still able to ambulate and get up with her walker and go to the bathroom. While in the ER patient received lab work significant for WBC 4131, hemoglobin 11.6, MCV 97.6, platelet count 124, sodium 136, potassium 4, bicarb 19, BUN 19, creatinine 0.69, and glucose 134. UA was within normal limits. CT abdomen and pelvis showed no evidence for acute abdominal/pelvic process within the limitations of a noncontrast exam, no evidence of obstructive uropathy, marked splenomegaly, and calcified disc herniated material at the T10 level resulting in at least mild spinal canal stenosis and severe right neural foraminal stenosis. At this time was deemed necessary for the patient to be admitted for further evaluation of intractable back pain with consultation to orthopedics and pain management. Patient seen and evaluated by pain management received CT scan and MRI which revealed disc herniation in the thorasic spine.Pain was stabalized and controlled with trigger point injection and chronic conditions were managed while holding eliquis prior to procedure on 05/19. Pain team recommended epidural steroid injection after holding elequis for 3 days. Patient is improved post procedure and feeling ready to return home. At time of discharge, the patient is hemodynamically stable being [facility] with multimodal pain management with follow ups with PCP and pain in 1 week. Resume eliquis 24 hrs postop. Pt seen and examined at bedside: No complaints at this time, feeling much improved Vital signs reveiwed and stable: General: non toxic, no distress, appears at stated age, normal weight Derm: no unusual rashes/lesions, warm Head: atraumatic, normocephalic, symmetric Eyes: EOMI, no lid lag, anicteric sclera, pupils equal round reactive to light ENT: Nose and ears atraumatic Neck: No cervical lymphadenopathy, trachea midline, supple Mouth: no lip lesion, mucus membranes moist Cardiovascular: S1S2 reg, no murmur, positive dorsalis pedis pulse bilateral, no edema Lungs: Decreased air entry bilaterally, no rhonchi, no rales, no accessory muscle use Abdominal: soft, nontender to palpation, no guarding Ext: muscle strength 5 out of 5 in all 4 extremities grossly, no gross muscle atrophy, no contractures, Neuro: CN II-XI grossly intact, no gross focal neuro deficits Psych: Alert, oriented, appropriate affect A total of 30 minutes were spent preparing this complex discharge summary. Patient was discharged on 05/19/2025. Patient Condition at Discharge: Fair Plan - Discharge Summary Discharge Rx Participant: Yes New Discharge Prescriptions: Continue Metoprolol Tartrate [Lopressor] 25 mg PO BID Acetaminophen Tab [Tylenol] 650 mg PO Q6H PRN PRN Reason: Pain Or Fever > 100.5 Hemorrhoidal Rectal Ointment 1 applic TOPICAL QID PRN PRN Reason: hemorrhoid irritation Cholestyramine (with Sugar) [Cholestyramine Packet] 4 gm PO BID Albuterol Inhaler [Ventolin Hfa Inhaler] 2 puff INHALATION RT-QID PRN PRN Reason: Shortness Of Breath traMADol HCL 50 mg PO Q6H PRN PRN Reason: Pain Methyl Salicylate/Menth/Camph [Salonpas 3.1%-6.0%-10.0% Patch] 1 patch TOPICAL DAILY Ensure Clear 1 can PO TID@0900,1300,2100 amLODIPine [Norvasc] 5 mg PO DAILY Donepezil HCl [Aricept] 10 mg PO HS Apixaban [Eliquis] 2.5 mg PO BID gemfibroziL [Lopid] 600 mg PO BID Loperamide [Imodium] 2 mg PO QID PRN cap PRN Reason: Diarrhea Pantoprazole [Protonix] 40 mg PO AC-BRKFST tab Cholecalciferol [Vitamin D3 (25 Mcg = 1000 Iu)] 25 mcg PO DAILY tab traZODone HCL [Desyrel] 25 mg PO HS Diclofenac Sodium Gel [Voltaren 1% Gel] 1 applic TOPICAL BID Discharge Medication List Acetaminophen Tab [Tylenol] 650 mg PO Q6H PRN 05/26/24 [History] Apixaban [Eliquis] 2.5 mg PO BID 05/26/24 [History] Donepezil HCl [Aricept] 10 mg PO HS 05/26/24 [History] Metoprolol Tartrate [Lopressor] 25 mg PO BID 05/26/24 [History] gemfibroziL [Lopid] 600 mg PO BID 05/26/24 [History] Cholecalciferol [Vitamin D3 (25 Mcg = 1000 Iu)] 25 mcg PO DAILY tab 05/30/24 [Rx] Loperamide [Imodium] 2 mg PO QID PRN cap 05/30/24 [Rx] Pantoprazole [Protonix] 40 mg PO AC-BRKFST tab 05/30/24 [Rx] Albuterol Inhaler [Ventolin Hfa Inhaler] 2 puff INHALATION RT-QID PRN 04/16/25 [History] Cholestyramine (with Sugar) [Cholestyramine Packet] 4 gm PO BID 04/16/25 [History] Diclofenac Sodium Gel [Voltaren 1% Gel] 1 applic TOPICAL BID 04/16/25 [History] Ensure Clear 1 can PO TID@0900,1300,2100 04/16/25 [History] Hemorrhoidal Rectal Ointment 1 applic TOPICAL QID PRN 04/16/25 [History] Methyl Salicylate/Menth/Camph [Salonpas 3.1%-6.0%-10.0% Patch] 1 patch TOPICAL DAILY 04/16/25 [History] traMADol HCL 50 mg PO Q6H PRN 04/16/25 [History] traZODone HCL [Desyrel] 25 mg PO HS 04/16/25 [History] amLODIPine [Norvasc] 5 mg PO DAILY 05/15/25 [History] Follow up Appointment(s)/Referral(s): Jackson Cutler MD [Primary Care Provider] - 1-2 days Roger Juarez PAC [PHYSICIAN SUPER[employer]OR [employer]CTION DEPARTMENT] - As Needed (Patient may follow-up with Roger Juarez or Dr. Victor Manuel Ramírez at [facility] as needed) Pain Clinic,[facility] [NON-STAFF] - As Needed (Please call when you get discharged so a follow up appt. can be made, may need an epidural steroid injection in the future for pain control per Dr. Hernandez.) Lauren mason [facility], [NON-STAFF] - As Needed Discharge/Stand Alone Forms: [facility] Pain/[facility] Instructions Discharge Disposition: TRANSFER TO SNF/ECF
== END 2025-05-19 14:33 ==
LOC: EC 21:38 → 5NMEDONC 23:59 → 4SSUR 05-16 15:05
PROVIDERS: ADMIT Hospitalist; ATTEND Hospitalist
DX: M51.14 Intervertebral disc disorders with radiculopathy, thoracic region (principal); M47.24 Other spondylosis with radiculopathy, thoracic region; M48.04 Spinal stenosis, thoracic region; M79.18 Myalgia, other site; M51.17 Intervertebral disc disorders with radiculopathy, lumbosacral region; M41.56 Other secondary scoliosis, lumbar region; I48.91 Unspecified atrial fibrillation; I10 Essential (primary) hypertension; C92.10 Chronic myeloid leukemia, BCR/ABL-positive, not having achieved remission; R16.1 Splenomegaly, not elsewhere classified; E78.5 Hyperlipidemia, unspecified; F03.90 Unspecified dementia, unspecified severity, without behavioral disturbance, psychotic disturbance, mood disturbance, and anxiety; D61.818 Other pancytopenia; Z79.01 Long term (current) use of anticoagulants; Z79.899 Other long term (current) drug therapy; Z88.0 Allergy status to penicillin; Z88.5 Allergy status to narcotic agent
CPT/HCPCS: 96376; 96374; 96375; 99285; 36415; 93005; 97165; 80053 ×2; 80048; 85025 ×3; 81003; 74176; 72146; 20552; 62321; G0378 ×6; J2270; J3010; J1171 ×2; J2795; Q9967; J1010 ×2; 99152

== ENCOUNTER → 2025-05-27 | Outpatient (CLI) | payer MEDICARE, OTHER ==
[2025-05-27 15:27] LABS: HCT 37.9 % (37.2-46.3); HGB 12.4 g/dL (12.0-15.0); MCH 32.5 pg (27.0-32.0); MCHC 32.7 g/dL (32.0-37.0); MCV 99.2 FL (80.0-97.0); NRBC Per 100 WBC 0 X 10*3/uL (0.00-0.01); Platelet Count 131 X 10*3/uL (140-440); RBC 3.82 X 10*6/uL (4.10-5.20); RDW 12.6 % (11.5-14.5); WBC 6.28 X 10*3/uL (4.50-10.00)
[2025-05-27 16:00] LABS: Basophils # (A) 0.03 X 10*3/uL (0.00-0.10); Basophils % (A) 0.5 %; Eosinophils # (A) 0.04 X 10*3/uL (0.04-0.35); Eosinophils % (A) 0.6 %; Immature Grans, Automated 0.80 %; Lymphocytes # (A) 2.40 X 10*3/uL (0.90-5.00); Lymphocytes % (A) 38.2 %; Monocytes # (A) 0.28 X 10*3/uL (0.20-1.00); Monocytes % (A) 4.5 %; Neutrophils # (A) 3.48 X 10*3/uL (1.80-7.70); Neutrophils % (A) 55.4 %; RBC Morphology Normal (Normal)
[2025-05-27 16:46] LABS: ALT 11 U/L (8-44); AST 16 U/L (13-35); Albumin 4.3 g/dL (3.8-4.9); Albumin/Globulin Ratio 1.87 Ratio (1.60-3.17); Alkaline Phosphatase 91 U/L (41-126); Anion Gap 13.60 mmol/L (4.00-12.00); BUN/Creat Ratio 18.30 Ratio (12.00-20.00); Blood Urea Nitrogen 18.3 mg/dL (9.0-27.0); Calcium 9.1 mg/dL (8.7-10.3); Carbon Dioxide 17.4 mmol/L (21.6-31.8); Chloride 106 mmol/L (96-109); Ferritin 922.0 ng/mL (10.0-291.0); Globulin 2.3 g/dL (1.6-3.3); Glucose 141 mg/dL (70-110); Iron 188 UG/DL (50-170); Potassium 3.9 mmol/L (3.5-5.5); Sodium 137 mmol/L (135-145); Total Iron Binding Capacity 360 UG/DL (228-460); Total Protein 6.6 g/dL (6.2-8.2); Vitamin B12 564.0 pg/mL (200.0-944.0)
== END | disposition home or self-care (01) ==
LOC: LABWHC1 11:31
PROVIDERS: ATTEND Internal Medicine Hematology & Oncology
DX: C92.11 Chronic myeloid leukemia, BCR/ABL-positive, in remission (principal); D50.9 Iron deficiency anemia, unspecified; D69.6 Thrombocytopenia, unspecified; D64.9 Anemia, unspecified; R19.7 Diarrhea, unspecified
CPT/HCPCS: 36415; 80053; 82607; 82728; 82746; 83540; 83550; 85025